=== PATIENT | male | born 1940 | race Caucasian/White ===

== ENCOUNTER 2017-06-29 00:33 | Emergency (ER) | payer OTHER, MEDICAID ==
[~2017-06-29] VITALS: Ht 180.3 cm; Wt 80.0 kg
[2017-06-29 00:46] VITALS: BP 114/68; PULSE 101; RESP 17; TEMP 98.3; O2SAT 96
--- NOTE | 2017-06-29 00:52 | PD ---
HPI Chief Complaint: vomiting Time Seen by Provider: 00:48 Travel History International Travel<30 days: No Contact w/Intl Traveler<30days: No History of Present Illness HPI The patient is a 76 year old male who presents to the [facility] emergency department with a history of falling at 9:30 AM yesterday on June 28. The patient was evaluated at that time and appeared to have only an abrasion to his occipital scalp. The patient was otherwise asymptomatic up until 1 hour prior to arrival in the emergency department when he developed nausea and vomiting. The patient reports having a mild headache. He denies having any neck pain. He denies having any weakness to his extremities. The patient has to be repeatedly awakened to answer questions and follow commands. The patient does have a history of dementia. The patient was brought in by ambulance services. The patient's blood sugar was noted to be in 120 prior to arrival. There reportedly was no loss of consciousness with his head injury. On review of systems otherwise, the patient denies having any known recent fevers, cough, congestion, chest pain, shortness of breath, abdominal pain, diarrhea, urinary symptoms, or other neurologic symptoms. [facility] Past Medical History Narrative Medical The patient's past medical history is significant for dementia, hypertension, diabetes mellitus Past Surgical History Narrative Surgical The patient's past surgical history is unable to be obtained. Social History Alcohol Use: No Tobacco Use: No (the patient's social history is unable to be obtained.) Substance Use: No Allergies-Medications (Allergen,Severity, Reaction): Coded Allergies: No Known Allergies (Unverified , 06/29/17) Reported Meds & Prescriptions Reported Meds & Active Scripts Active Zofran Odt (Ondansetron Odt) 4 Mg Tab 4 Mg SL Q6HR PRN Review of Systems Except as stated in HPI: all other systems reviewed are Neg General / Constitutional: No: Fever Eyes: No: Visual changes HENT: Positive: Headaches, No: Congestion, Neck Stiffness, Neck Pain Cardiovascular: No: Chest Pain or Discomfort Respiratory: No: Cough, Shortness of Breath Gastrointestinal: Positive: Nausea, Vomiting, No: Abdominal Pain Genitourinary: No: Dysuria Musculoskeletal: No: Pain Skin: No Rash Neurologic: Positive: Headache, No: Weakness, Focal Abnormalities, Change in Mentation, Slurred Speech, Sensory Disturbance Psychiatric: No: Depression Endocrine: No: Polydipsia Hematologic/Lymphatic: No: Easy Bruising Physical Exam Narrative General: The patient is a well-developed well-nourished male in no acute distress, drowsy on arrival. Head and Neck exam: Head is normocephalic, evidence of trauma to the posterior/occipital area of the scalp with a linear abrasion noted. No active bleeding. No step-off or crepitus. Eyes: EOMI, pupils are equal round and reactive to light. Nose: Midline septum with pink mucous membranes Mouth: Dentition unremarkable. Moist mucus membranes. Posterior oropharynx is not erythematous. No tonsillar hypertrophy. Uvula midline. Airway patent. Neck: No palpable lymphadenopathy. No nuchal rigidity. No thyromegaly. No spinous process tenderness to palpation. No step-off or crepitus. No erythema or ecchymosis. Cardiovascular: Tachycardia in the low 100s without murmurs, gallops, or rubs. No pulse deficit to the extremities on simultaneous auscultation and palpation of his radial artery. Lungs: Clear to auscultation bilaterally. No wheezes, rhonchi, or rales. Abdomen: Soft, without tenderness to palpation in all 4 quadrants of the abdomen. No guarding, rebound, or rigidity. Normal bowel sounds are audible. No tenderness on palpation of McBurney's point. Extremities: No clubbing, cyanosis, or edema. 2+ pulses in all 4 extremities. No calf tenderness on palpation. No extremity tenderness on palpation or pain with range of motion. Back: No spinous process tenderness to palpation. No costovertebral angle tenderness to palpation. Neurologic Exam: Cranial nerves 2-12 were intact on exam. Strength is 5/5 in all 4 extremities. No sensory deficits noted. The patient is oriented to person, however not place , time, or situation. Skin Exam: No rash noted. Intact skin that is warm and dry. Data Data Last Documented VS Vital Signs Date Time Temp Pulse Resp B/P (MAP) Pulse Ox O2 Delivery O2 Flow Rate FiO2 06/29/17 00:46 98.3 101 17 114/68 (83) 96 Orders Orders Electrocardiogram (06/29/17 00:57) Complete Blood Count With Diff (06/29/17 00:57) Comprehensive Metabolic Panel (06/29/17 00:57) Creatine Kinase (Cpk) (2/5/18 00:57) Ckmb (Isoenzyme) Profile (06/29/17 00:57) Troponin I (06/29/17 00:57) B-Type Natriuretic Peptide (06/29/17 00:57) Prothrombin Time / Inr (Pt) (06/29/17 00:57) Act Partial Throm Time (Ptt) (06/29/17 00:57) Lipase (06/29/17 00:57) Magnesium (Mg) (06/29/17 00:57) Chest, Single Ap (06/29/17 00:57) Ct Brain W/O Iv Contrast(Rout) (06/29/17 00:57) Iv Access Insert/Monitor (06/29/17 00:57) Ecg Monitoring (06/29/17 00:57) Oximetry (06/29/17 00:57) Ct Cerv Spine W/O Contrast (06/29/17 ) Sodium Chlorid 0.9% 500 Ml Inj (Ns 500 M (06/29/17 01:00) Ondansetron Inj (Zofran Inj) (06/29/17 01:00) CKMB (06/29/17 01:10) CKMB% (06/29/17 01:10) Urinalysis - C+S If Indicated (06/29/17 02:09) Cath For Specimen (06/29/17 02:09) Labs Laboratory Tests Test 06/29/17 01:10 06/29/17 03:00 White Blood Count 12.6 TH/MM3 Red Blood Count 3.58 MIL/MM3 Hemoglobin 11.3 GM/DL Hematocrit 32.5 % Mean Corpuscular Volume 90.8 FL Mean Corpuscular Hemoglobin 31.6 PG Mean Corpuscular Hemoglobin Concent 34.8 % Red Cell Distribution Width 15.6 % Platelet Count 232 TH/MM3 Mean Platelet Volume 8.3 FL Neutrophils (%) (Auto) 84.2 % Lymphocytes (%) (Auto) 8.1 % Monocytes (%) (Auto) 7.0 % Eosinophils (%) (Auto) 0.2 % Basophils (%) (Auto) 0.5 % Neutrophils # (Auto) 10.6 TH/MM3 Lymphocytes # (Auto) 1.0 TH/MM3 Monocytes # (Auto) 0.9 TH/MM3 Eosinophils # (Auto) 0.0 TH/MM3 Basophils # (Auto) 0.1 TH/MM3 CBC Comment DIFF FINAL Differential Comment Prothrombin Time 11.7 SEC Prothromb Time International Ratio 1.2 RATIO Activated Partial Thromboplast Time 31.2 SEC Blood Urea Nitrogen 32 MG/DL Creatinine 1.19 MG/DL Random Glucose 133 MG/DL Total Protein 6.9 GM/DL Albumin 3.3 GM/DL Calcium Level 8.1 MG/DL Magnesium Level 2.2 MG/DL Alkaline Phosphatase 96 U/L Aspartate Amino Transf (AST/SGOT) 23 U/L Alanine Aminotransferase (ALT/SGPT) 21 U/L Total Bilirubin 0.4 MG/DL Sodium Level 144 MEQ/L Potassium Level 4.0 MEQ/L Chloride Level 109 MEQ/L Carbon Dioxide Level 29.3 MEQ/L Anion Gap 6 MEQ/L Estimat Glomerular Filtration Rate 59 ML/MIN Total Creatine Kinase 213 U/L Creatine Kinase MB 3.5 NG/ML Troponin I LESS THAN 0.02 NG/ML B-Type Natriuretic Peptide 71 PG/ML Lipase 158 U/L Urine Color YELLOW Urine Turbidity CLEAR Urine pH 6.0 Urine Specific [place] 1.022 Urine Protein TRACE mg/dL Urine Glucose (UA) NEG mg/dL Urine Ketones NEG mg/dL Urine Occult Blood NEG Urine Nitrite NEG Urine Bilirubin NEG Urine Urobilinogen LESS THAN 2.0 MG/DL Urine Leukocyte Esterase TRACE Urine RBC 2 /hpf Urine WBC 2 /hpf Urine Bacteria RARE /hpf Urine Mucus FEW /lpf Microscopic Urinalysis Comment CULT NOT INDICATED MDM Medical Decision Making Medical Screen Exam Complete: Yes Emergency Medical Condition: Yes Medical Record Reviewed: Yes Interpretation(s) Last Impressions Head CT 06/29/1756 Signed Impressions: Service Date/Time: Thursday, June 29, 2017 01:21 - CONCLUSION: 1. No acute intracranial abnormality is identified. 2. Chronic findings include moderate to severe generalized atrophy and mild periventricular white matter change. Benjie Carrillo MD Chest X-Ray 06/29/1756 Signed Impressions: Service Date/Time: Thursday, June 29, 2017 01:09 - CONCLUSION: Underinflated examination with atelectasis at the lung bases. No acute cardiopulmonary abnormality is identified. Benjie Carrillo MD Cervical Spine CT 06/29/17 0000 Signed Impressions: Service Date/Time: Thursday, June 29, 2017 01:23 - CONCLUSION: 1. No acute cervical spine abnormality is identified. 2. Slight anterolisthesis of C4 on C5 and C7 on T1, likely related to facet arthrosis. There is severe degenerative disc disease at C3-C4 and C6-C7. Benjie Carrillo MD Differential Diagnosis Intracranial trauma, versus cervical spine trauma, versus viral syndrome, versus electrolyte derangements Narrative Course During the course of the patients emergency department visit, the patients history, examination, and differential diagnosis were reviewed with the patient. The patient was placed on a marine engineering teacher with oximetry and frequent blood pressure monitoring. The patient had IV access obtained and blood work sent for analysis. The patient had an EKG done on arrival the patient's EKG shows a sinus rhythm with a heart rate of 93, incomplete right bundle branch block, QRS duration is 97 ms, QTC [address] segment elevation is noted. The patient was initially provided normal saline a 500 mL bolus 1, Zofran 4 mg IV. The patients laboratory studies were reviewed and remarkable for a white count of 12.6, hemoglobin 11.3, platelets 232 with 84.2 neutrophils, CMP is remarkable for a chloride of 109, BUN 32, glucose 133, cardiac enzymes within normal limits, BNP is 71, lipase 158, PT 11.7, PTT 31.2 Radiology studies were reviewed and remarkable for a chest x-ray that shows under inflated examination with atelectasis at the lung bases, no acute cardiopulmonary abnormality, CT scan of the brain shows no acute intracranial abnormality. Right findings include moderate to severe generalized atrophy and mild periventricular white matter change, CT scan of the C-spine shows no acute cervical spine abnormality. Degenerative changes are noted. Given the patient's elevated white blood cell count and vomiting, a catheter urine will be sent for analysis to rule out a urinary tract infection. Otherwise, the patient will be [facility] with a prescription for nausea medication. A catheterized urine shows trace leukocyte Estrace, 2 rbc's, 2 wbc's, rare bacteria, culture not indicated. The patient is resting comfortably and feels better, is alert and in no distress. The patients results and examination findings were discussed with the patient. The repeat examination is unremarkable and benign. The history, exam, diagnostic testing, and current condition do not suggest any significant pathology to warrant further testing, continued ED treatment, admission, or surgical evaluation at this point. The vital signs have been stable. The patient does not have uncontrollable pain, intractable vomiting, or other significant symptoms. The patient's condition is stable and appropriate for discharge. The patient will pursue further outpatient evaluation with a primary care physician or other designated or consulting physician as indicated in the discharge instructions. The patient expressed understanding and was agreeable with this plan. Diagnosis Primary Impression: Head injury Qualified Codes: S09.90XA - Unspecified injury of head, initial encounter Additional Impression: Nausea & vomiting Qualified Codes: R11.2 - Nausea with vomiting, unspecified Referrals: Primary Care Physician 2 days Patient Instructions: Acute Nausea and Vomiting (ED), General Instructions, Head Injury (ED) Med/Other Pt SpecificInfo: Prescription(s) given, No Change to Meds Scripts Ondansetron Odt (Zofran Odt) 4 Mg Tab 4 MG SL Q6HR Y for Nausea/Vomiting, #7 TAB 0 Refills Prov: Lashonda Crowe MD 06/29/17 Disposition: 03 DISCHARGE TO SNF Condition: Stable Lashonda Crowe MD Jun 29, 2017 00:52
[2017-06-29] MEDS ORDERED: SODIUM CHLORID 0.9% 500 ML INJ 500 ML IV ONE (01:00)
[2017-06-29] MEDS ORDERED: ONDANSETRON HCL 4 MG/2 ML VIAL IV PUSH ONE (01:00)
[2017-06-29 01:22] LABS: AUTOMATED NEUTROPHIL # 10.6 TH/MM3 (1.8-7.7); BASOPHIL # 0.1 TH/MM3 (0-0.2); BASOPHIL % 0.5 % (0.0-2.0); EOSINOPHIL % 0.2 % (0.0-4.0); HEMATOCRIT 32.5 % (39.0-51.0); HEMOGLOBIN 11.3 GM/DL (13.0-17.0); LYMPH % 8.1 % (9.0-44.0); MEAN CELL VOLUME 90.8 FL (80.0-100.0); MEAN CORPUSCULAR HEMOGLOBIN 31.6 PG (27.0-34.0); MEAN CORPUSCULAR HGB CONC 34.8 % (32.0-36.0); MEAN PLATELET VOLUME 8.3 FL (7.0-11.0); MONOCYTE # 0.9 TH/MM3 (0-0.9); NEUT % 84.2 % (16.0-70.0); PLATELET COUNT 232 TH/MM3 (150-450); RED BLOOD COUNT 3.58 MIL/MM3 (4.50-5.90); RED CELL DISTRIBUTION WIDTH 15.6 % (11.6-17.2); WHITE BLOOD COUNT 12.6 TH/MM3 (4.0-11.0)
--- NOTE | 2017-06-29 01:35 | RADRPT ---
EXAM DATE/TIME: 06/29/2017 01:21 [facility] COMPARISON: No previous studies available for comparison. INDICATIONS : Trauma; fall. RADIATION DOSE: 56.35 CTDIvol (mGy) MEDICAL HISTORY : Non-responsive. SURGICAL HISTORY : Non-responsive. ENCOUNTER: Initial ACUITY: 1 day PAIN SCALE: Non-responsive LOCATION: cranial TECHNIQUE: Multiple contiguous axial images were obtained of the head. Using automated exposure control and adj ustment of the mA and/or kV according to patient size, radiation dose was kept as low as reasonably a chievable to obtain optimal diagnostic quality images. DICOM format image data is available electro nically for review and comparison. FINDINGS: CEREBRUM: There is moderate to severe generalized atrophy. Ventricles are normal in size. No evidence of midli ne shift, mass lesion, hemorrhage or acute infarction. No extra-axial fluid collections are seen. POSTERIOR FOSSA: The cerebellum and brainstem are intact. The 4th ventricle is midline. The cerebellopontine angle i s unremarkable. EXTRACRANIAL: There has been right scleral banding. SKULL: The calvaria is intact. No evidence of skull fracture. CONCLUSION: 1. No acute intracranial abnormality is identified. 2. Chronic findings include moderate to severe generalized atrophy and mild periventricular white mat ter change. Benjie Carrillo MD on June 29, 2017 at 1:32 Board Certified Radiologist. This report was verified electronically.
[2017-06-29 01:36] LABS: INTERNATIONAL NORMALIZED RATIO 1.2 RATIO; PROTHROMBIN TIME - PATIENT 11.7 SEC (9.8-11.6)
--- NOTE | 2017-06-29 01:36 | RADRPT ---
EXAM DATE/TIME: 06/29/2017 01:09 [facility] COMPARISON: No previous studies available for comparison. INDICATIONS : Altered mental status and possible fall. MEDICAL HISTORY : None. SURGICAL HISTORY : Pacemaker. ENCOUNTER: Initial ACUITY: 1 day PAIN SCORE: Non-responsive. LOCATION: Bilateral chest FINDINGS: Portable AP view of the chest demonstrates a normal-sized cardiac silhouette. Left chest wall cardiac pacing device is present. Lungs are underinflated with atelectasis at the bases. No pleural effusion or pneumothorax is identified. Bones and soft tissues demonstrate no acute finding. CONCLUSION: Underinflated examination with atelectasis at the lung bases. No acute cardiopulmonary abnormality is identified. Benjie Carrillo MD on June 29, 2017 at 1:34 Board Certified Radiologist. This report was verified electronically.
[2017-06-29 01:45] LABS: ALBUMIN 3.3 GM/DL (3.4-5.0); ALT (GPT) 21 U/L (12-78); AST (GOT) 23 U/L (15-37); BICARBONATE 29.3 MEQ/L (21.0-32.0); BLOOD UREA NITROGEN 32 MG/DL (7-18); CALCIUM 8.1 MG/DL (8.5-10.1); CHLORIDE 109 MEQ/L (98-107); CREATININE 1.19 MG/DL (0.60-1.30); GLOMERULAR FILTRATION RATE 59 ML/MIN (>89); GLUCOSE,RANDOM 133 MG/DL (74-106); MAGNESIUM 2.2 MG/DL (1.5-2.5); SODIUM (NA) 144 MEQ/L (136-145)
--- NOTE | 2017-06-29 01:46 | RADRPT ---
EXAM DATE/TIME: 06/29/2017 01:23 [facility] COMPARISON: No previous studies available for comparison. INDICATIONS : Trauma; fall. RADIATION DOSE: 25.25 CTDIvol (mGy) MEDICAL HISTORY : Non-responsive. SURGICAL HISTORY : Non-responsive. ENCOUNTER: Initial ACUITY: 1 day PAIN SCALE: Non-responsive LOCATION: neck TECHNIQUE: Volumetric scanning of the cervical spine was performed. Multiplanar reconstructions in the sagittal, coronal and oblique axial planes were performed. Using automated exposure control and adjustment o f the mA and/or kV according to patient size, radiation dose was kept as low as reasonably achievable to obtain optimal diagnostic quality images. DICOM format image data is available electronically f or review and comparison. FINDINGS: There is 2 mm of anterolisthesis of C7 on T1 secondary to facet arthrosis. There is minimal anterolis thesis of C4 on C5 also likely related to facet arthrosis. Severe degenerative disc disease is presen t at C3-C4 and C6-C7. The atlantoaxial relationship is within normal limits. There is no prevertebral soft tissue swelling present. No fracture or dislocation is identified. The visualized portions of the posterior fossa, paraspinous soft tissues, and upper lung zones demons trate no acute abnormality. There are emphysematous changes at the lung apices. CONCLUSION: 1. No acute cervical spine abnormality is identified. 2. Slight anterolisthesis of C4 on C5 and C7 on T1, likely related to facet arthrosis. There is sever e degenerative disc disease at C3-C4 and C6-C7. Benjie Carrillo MD on June 29, 2017 at 1:42 Board Certified Radiologist. This report was verified electronically.
[2017-06-29 01:49] LABS: ALKALINE PHOSPHATASE 96 U/L (45-117); TOTAL BILIRUBIN ADULT 0.4 MG/DL (0.2-1.0); TOTAL PROTEIN 6.9 GM/DL (6.4-8.2); TROPONIN I LESS THAN 0.02 NG/ML (0.02-0.05)
[2017-06-29 03:19] LABS: BACTERIA, URINE RARE /hpf; BILIRUBIN, URINE NEG (NEG); BLOOD, URINE NEG (NEG); GLUCOSE,URINE NEG (NEG); KETONE, URINE NEG (NEG); MUCUS URINE FEW /lpf (OCC); NITRITE,URINE NEG (NEG); URINE COLOR YELLOW (YELLW/STRAW); URINE LEUKOCYTE ESTERASE TRACE (NEG)
[2017-06-29] MEDS ORDERED: ZOFR4TAB3 SL (03:21)
[2017-06-29 07:59] VITALS: BP 112/64; PULSE 87; RESP 17; O2SAT 98
--- NOTE | 2017-06-29 22:05 | EKG ---
Date Performed: 06/29/2017 Time Performed: 01:42:43 PTAGE: 76 years EKG: Sinus rhythm INCOMPLETE RIGHT BUNDLE BRANCH BLOCK BORDERLINE ECG PREVIOUS TRACING : 06/12/1995 13.44 DOCTOR: Luis Angel Craig Interpretating Date/Time 06/29/2017 22:00:20
== END 2017-06-29 10:59 ==
LOC: NEPC 00:33
DX: S09.90XA Unspecified injury of head, initial encounter (principal); R11.2 Nausea with vomiting, unspecified; F03.90 Unspecified dementia, unspecified severity, without behavioral disturbance, psychotic disturbance, mood disturbance, and anxiety; I45.10 Unspecified right bundle-branch block; W19.XXXA Unspecified fall, initial encounter
CPT/HCPCS: 70450; 71045; 72125; 80053; 81001; 82550; 82552; 83690; 83735; 83880; 84484; 85025; 85610; 85730; 93005; 96361; 96374; 99285; J2405; J7040

== ENCOUNTER 2017-07-16 17:37 | Emergency (ER) | payer OTHER, MEDICAID ==
[~2017-07-16] VITALS: Ht 170.2 cm; Wt 70.0 kg
[~2017-07-16 17:37] MED LIST: ZOFR4TAB3 SL
[2017-07-16 18:07] VITALS: BP 112/60; PULSE 95; RESP 16; TEMP 98.1; O2SAT 98
[2017-07-16] MEDS ORDERED: SIMV40TA PO (18:13)
[2017-07-16] MEDS ORDERED: CLON0.5T PO (18:13)
[2017-07-16] MEDS ORDERED: METO25TA3 PO (18:13)
[2017-07-16] MEDS ORDERED: REME15TA PO (18:13)
[2017-07-16] MEDS ORDERED: METF500T4 PO (18:13)
[2017-07-16] MEDS ORDERED: RAMI5CAP PO (18:13)
[2017-07-16] MEDS ORDERED: SODIUM CHLORIDE 0.9% FLUSH 10 ML FLUSH IV FLUSH PRN (18:30)
[2017-07-16] MEDS ORDERED: SODIUM CHLOR 0.9% 1000 ML INJ 1,000 ML IV ONE (18:30)
--- NOTE | 2017-07-16 18:30 | PD ---
HPI Chief Complaint: Altered Mental Status Time Seen by Provider: 18:17 Travel History International Travel<30 days: No Contact w/Intl Traveler<30days: No Traveled to known affect area: No History of Present Illness HPI This person is sent from the group home according to paramedics because he was more confused and altered than baseline. He has history of advanced dementia and is in the memory care unit of [facility]. No reported recent head injury although he had one a couple weeks ago with negative brain CT afterwards. He has had no fever. He is diabetic but Accu- Chek normal. He was found lying in the recliner just not doing much today. He is not able to provide any useful history or review of systems. PFSH Past Medical History Dementia: Yes Diabetes: Yes Diminished Hearing: Yes Glaucoma: Yes Hypertension: Yes Psychiatric: Yes Renal Failure: Yes Social History Alcohol Use: No Tobacco Use: No (the patient's social history is unable to be obtained.) Substance Use: No Allergies-Medications (Allergen,Severity, Reaction): Coded Allergies: No Known Allergies (Unverified , 07/16/17) Reported Meds & Prescriptions Reported Meds & Active Scripts Active Reported Zofran (Ondansetron HCl) 4 Mg Tab 4 Mg PO Q6HR PRN Tylenol (Acetaminophen) 325 Mg Tab 325 Mg PO Q6H PRN Famotidine 20 Mg Tab 20 Mg PO DAILY PRN Timoptic Opth Drops (Timolol Opth Drops) 0.5 % Soln 1 Drop LEFT EYE BID Stop date:07/23/2017 Timoptic Opth Drops (Timolol Opth Drops) 0.25 % Soln 1 Drop LEFT EYE BID On hold from 06/25/2017-07/23/2017 Seroquel (Quetiapine Fumarate) 50 Mg Tab 50 Mg PO BID Namenda (Memantine) 10 Mg Tab 10 Mg PO BID Clonazepam 0.5 Mg Tab 0.5 Mg PO BID Simvastatin 40 Mg Tab 40 Mg PO HS Remeron (Mirtazapine) 15 Mg Tab 15 Mg PO HS Ramipril 5 Mg Cap 5 Mg PO DAILY Metoprolol Tartrate 25 Mg Tab 25 Mg PO DAILY Metformin ER (Metformin HCl) 500 Mg Sukh 500 Mg PO DAILY With evening meal Review of Systems ROS Limitations: Clinical Condition, Altered Mental Status, Poor Historian Physical Exam Narrative GENERAL: Elderly confused demented well-developed patient in no apparent distress. SKIN: Focused skin assessment reveals no rash and nodules. Skin is Warm and dry. HEAD: Atraumatic. Normocephalic. EYES: Pupils equal and round. No scleral icterus. No injection or drainage. ENT: No nasal bleeding or discharge. Mucous membranes pink and moist. NECK: Trachea midline. No JVD. CARDIOVASCULAR: Regular rate and rhythm. No murmur appreciated. RESPIRATORY: No accessory muscle use. Clear to auscultation. Breath sounds equal bilaterally. GASTROINTESTINAL: Abdomen soft, non-tender, nondistended. Hepatic and splenic margins not palpable. MUSCULOSKELETAL: No obvious deformities. No clubbing. No cyanosis. No edema. Extremities are very stiff NEUROLOGICAL: Normal gag reflex. impossible to gauge motor strength and sensation given his lack of participation. He mumbles a bit but no intelligible responses to questions . PSYCHIATRIC: Very flat and minimally reactive mood and affect; insight and judgment poor Data Data Last Documented VS Vital Signs Date Time Temp Pulse Resp B/P (MAP) Pulse Ox O2 Delivery O2 Flow Rate FiO2 07/16/17 18:07 98.1 95 16 112/60 (77) 98 Orders Orders Basic Metabolic Panel (Bmp) (07/16/17 18:18) Complete Blood Count With Diff (07/16/17 18:18) Thyroid Stimulating Hormone (07/16/17 18:18) Urinalysis - C+S If Indicated (07/16/17 18:18) Chest, Single Ap (07/16/17 18:18) Ct Brain W/O Iv Contrast(Rout) (07/16/17 18:18) Ecg Monitoring (07/16/17 18:18) Iv Access Insert/Monitor (07/16/17 18:18) Cath For Specimen (07/16/17 18:18) Oximetry (07/16/17 18:18) Sodium Chloride 0.9% Flush (Ns Flush) (07/16/17 18:30) Sodium Chlor 0.9% 1000 Ml Inj (Ns 1000 M (07/16/17 18:30) Arterial Blood Gas (Abg) (07/16/17 ) MDM Medical Decision Making Medical Screen Exam Complete: Yes Emergency Medical Condition: Yes Medical Record Reviewed: Yes Differential Diagnosis Electrolyte abnormality, UTI, dehydration, intracranial lesion Narrative Course I have reviewed the patient's electronic medical record. Reviewed his visit from 2 weeks ago This is a very demented man who is here for worsening mental status for 1 day I have ordered an altered mental status workup to include labs and urine and CT of brain It is now 15 minutes until shift end and none of the workup is back yet. It will be some time to collect it all. Case will be checked out to the 7 PM physician to assist with disposition. Diagnosis Primary Impression: Altered mental status Qualified Codes: R41.82 - Altered mental status, unspecified Additional Impression: Dementia Qualified Codes: F03.90 - Unspecified dementia without behavioral disturbance Brent Castellanos MD Jul 16, 2017 18:30
[2017-07-16] MEDS ORDERED: SERO50TA PO (18:42)
[2017-07-16] MEDS ORDERED: FAMO20TA2 PO (18:42)
[2017-07-16] MEDS ORDERED: NAME10TA PO (18:42)
[2017-07-16] MEDS ORDERED: TIMO0.5S5 LEFT EYE (18:42)
[2017-07-16] MEDS ORDERED: TIMO0.255 LEFT EYE (18:42)
[2017-07-16] MEDS ORDERED: ZOFR4TAB PO (18:42)
[2017-07-16] MEDS ORDERED: TYLE325T PO (18:42)
--- NOTE | 2017-07-16 18:48 | RADRPT ---
EXAM DATE/TIME: 07/16/2017 18:29 [facility] COMPARISON: CHEST SINGLE AP, June 29, 2017, 1:09. INDICATIONS : Shortness of breath. MEDICAL HISTORY : Unobtainable. SURGICAL HISTORY : Pacemaker. ENCOUNTER: Initial ACUITY: 1 day PAIN SCORE: Non-responsive. LOCATION: Bilateral chest FINDINGS: Stable dual-lead pacemaker. Redemonstration of bibasilar airspace disease. Cardiomediastinal contours are stable. Bony thorax is grossly intact. CONCLUSION: 1. Persistent mild bibasilar airspace disease, presumably atelectasis. 2. No acute abnormality or interval change. Golden Kingston MD on July 16, 2017 at 18:45 Board Certified Radiologist. This report was verified electronically.
[2017-07-16 19:02] LABS: AUTOMATED NEUTROPHIL # 8.4 TH/MM3 (1.8-7.7); BASOPHIL % 0.4 % (0.0-2.0); EOSINOPHIL # 0.1 TH/MM3 (0-0.4); EOSINOPHIL % 1.3 % (0.0-4.0); HEMATOCRIT 34.8 % (39.0-51.0); HEMOGLOBIN 11.5 GM/DL (13.0-17.0); LYMPH % 14.7 % (9.0-44.0); LYMPHOCYTE # 1.7 TH/MM3 (1.0-4.8); MEAN CELL VOLUME 92.4 FL (80.0-100.0); MEAN CORPUSCULAR HEMOGLOBIN 30.6 PG (27.0-34.0); MEAN CORPUSCULAR HGB CONC 33.1 % (32.0-36.0); MEAN PLATELET VOLUME 8.4 FL (7.0-11.0); MONO % 9.6 % (0.0-8.0); MONOCYTE # 1.1 TH/MM3 (0-0.9); PLATELET COUNT 306 TH/MM3 (150-450); RED BLOOD COUNT 3.77 MIL/MM3 (4.50-5.90); RED CELL DISTRIBUTION WIDTH 15.7 % (11.6-17.2); WHITE BLOOD COUNT 11.4 TH/MM3 (4.0-11.0)
[2017-07-16 19:04] LABS: AMORPHOUS SEDIMENT, URINE RARE; BACTERIA, URINE FEW /hpf; BILIRUBIN, URINE NEG (NEG); BLOOD, URINE NEG (NEG); GLUCOSE,URINE NEG (NEG); KETONE, URINE NEG (NEG); MUCUS URINE FEW /lpf (OCC); NITRITE,URINE POS (NEG); URINE COLOR YELLOW (YELLW/STRAW); URINE LEUKOCYTE ESTERASE LARGE (NEG)
[2017-07-16] MEDS ORDERED: LEVOFLOXACIN 750 MG PREMIX INJ 150 ML IV ONE (19:15)
--- NOTE | 2017-07-16 19:18 | PD ---
Physical Exam Date Seen by Provider: Jul 16, 2017 Time Seen by Provider: 19:30 Narrative pt has nitrate Postive Urine +wbc UTi levaquin IV and re-eval Data Data Last Documented VS Vital Signs Date Time Temp Pulse Resp B/P (MAP) Pulse Ox O2 Delivery O2 Flow Rate FiO2 07/17/17 09:17 07/17/17 08:14 88 12 98 Room Air 07/16/17 18:07 98.1 Orders Orders Basic Metabolic Panel (Bmp) (07/16/17 18:18) Complete Blood Count With Diff (07/16/17 18:18) Thyroid Stimulating Hormone (07/16/17 18:18) Urinalysis - C+S If Indicated (07/16/17 18:18) Chest, Single Ap (07/16/17 18:18) Ct Brain W/O Iv Contrast(Rout) (07/16/17 18:18) Ecg Monitoring (07/16/17 18:18) Iv Access Insert/Monitor (07/16/17 18:18) Cath For Specimen (07/16/17 18:18) Oximetry (07/16/17 18:18) Sodium Chloride 0.9% Flush (Ns Flush) (07/16/17 18:30) Sodium Chlor 0.9% 1000 Ml Inj (Ns 1000 M (07/16/17 18:30) Arterial Blood Gas (Abg) (07/16/17 18:54) Urine Culture (07/16/17 18:20) Levofloxacin 750 Mg Premix Inj (Levaquin (07/16/17 19:15) Ed Discharge Order (07/17/17 06:29) Labs Laboratory Tests Test 07/16/17 18:20 07/16/17 18:54 White Blood Count 11.4 TH/MM3 Red Blood Count 3.77 MIL/MM3 Hemoglobin 11.5 GM/DL Hematocrit 34.8 % Mean Corpuscular Volume 92.4 FL Mean Corpuscular Hemoglobin 30.6 PG Mean Corpuscular Hemoglobin Concent 33.1 % Red Cell Distribution Width 15.7 % Platelet Count 306 TH/MM3 Mean Platelet Volume 8.4 FL Neutrophils (%) (Auto) 74.0 % Lymphocytes (%) (Auto) 14.7 % Monocytes (%) (Auto) 9.6 % Eosinophils (%) (Auto) 1.3 % Basophils (%) (Auto) 0.4 % Neutrophils # (Auto) 8.4 TH/MM3 Lymphocytes # (Auto) 1.7 TH/MM3 Monocytes # (Auto) 1.1 TH/MM3 Eosinophils # (Auto) 0.1 TH/MM3 Basophils # (Auto) 0.0 TH/MM3 CBC Comment DIFF FINAL Differential Comment Urine Color YELLOW Urine Turbidity CLEAR Urine pH 6.0 Urine Specific [place] 1.019 Urine Protein TRACE mg/dL Urine Glucose (UA) NEG mg/dL Urine Ketones NEG mg/dL Urine Occult Blood NEG Urine Nitrite POS Urine Bilirubin NEG Urine Urobilinogen LESS THAN 2.0 MG/DL Urine Leukocyte Esterase LARGE Urine RBC 6 /hpf Urine WBC 35 /hpf Urine Amorphous Sediment RARE Urine Bacteria FEW /hpf Urine Mucus FEW /lpf Microscopic Urinalysis Comment CATH-CULTURE IND Blood Urea Nitrogen 27 MG/DL Creatinine 1.05 MG/DL Random Glucose 94 MG/DL Calcium Level 8.9 MG/DL Sodium Level 139 MEQ/L Potassium Level 4.8 MEQ/L Chloride Level 106 MEQ/L Carbon Dioxide Level 30.4 MEQ/L Anion Gap 3 MEQ/L Estimat Glomerular Filtration Rate 68 ML/MIN Thyroid Stimulating Hormone 3rd Gen 3.970 uIU/ML Blood Gas Puncture Site RT RADIAL Blood Gas Patient Temperature 98.6 Blood Gas HCO3 25 mmol/L Blood Gas Base Excess 0.9 mmol/L Blood Gas Oxygen Saturation 93 % Arterial Blood pH 7.43 Arterial Blood Partial Pressure CO2 38 mmHg Arterial Blood Partial Pressure O2 68 mmHG Arterial Blood Oxygen Content 13.8 Vol % Arterial Blood Carboxyhemoglobin 1.6 % Arterial Blood Methemoglobin 0.4 % Blood Gas Hemoglobin 10.5 G/DL Oxygen Delivery Device ROOM AIR Blood Gas Inspired Oxygen 21 % [facility] Medical Record Reviewed: Yes Supervised Visit with CARLYLE: No Differential Diagnosis urosepsis dementia advanced dilirium from uti or PNA Diagnosis Primary Impression: UTI (urinary tract infection) Qualified Codes: N30.00 - Acute cystitis without hematuria Additional Impressions: Dementia Qualified Codes: F03.90 - Unspecified dementia without behavioral disturbance Altered mental status Qualified Codes: R41.82 - Altered mental status, unspecified Patient Instructions: General Instructions, Urinary Tract Infection in Men (ED) Scripts Levofloxacin (Levaquin) 500 Mg Tablet 500 MG PO DAILY for Infection, #7 TAB 0 Refills Prov: Anshu Cordova MD 07/17/17 Disposition: 01 DISCHARGE HOME Condition: Good Anshu Cordova MD Jul 16, 2017 19:18
[2017-07-16 19:26] LABS: BICARBONATE 30.4 MEQ/L (21.0-32.0); CALCIUM 8.9 MG/DL (8.5-10.1); CREATININE 1.05 MG/DL (0.60-1.30)
--- NOTE | 2017-07-16 20:15 | RADRPT ---
EXAM DATE/TIME: 07/16/2017 19:34 [facility] COMPARISON: CT BRAIN W/O CONTRAST, June 29, 2017, 1:21. INDICATIONS : Altered mental status. RADIATION DOSE: 61.96 CTDIvol (mGy) MEDICAL HISTORY : Dementia. Hypertension. Renal failure. Diabetes. SURGICAL HISTORY : None. ENCOUNTER: Initial ACUITY: 1 day PAIN SCALE: 0/10 LOCATION: cranial TECHNIQUE: Multiple contiguous axial images were obtained of the head. Using automated exposure control and adj ustment of the mA and/or kV according to patient size, radiation dose was kept as low as reasonably a chievable to obtain optimal diagnostic quality images. DICOM format image data is available electro nically for review and comparison. FINDINGS: CEREBRUM: Severe diffuse cerebral atrophy unchanged from prior exam. Stable mild periventricular white matter h ypodensities. The ventricles are normal for age. No evidence of midline shift, mass lesion, hemorrha ge or acute infarction. No extra-axial fluid collections are seen. POSTERIOR FOSSA: The cerebellum and brainstem are intact. The 4th ventricle is midline. The cerebellopontine angle i s unremarkable. EXTRACRANIAL: The visualized portion of the orbits is intact. SKULL: The calvaria is intact. No evidence of skull fracture. CONCLUSION: 1. Stable examination without acute intracranial abnormality. Golden Kingston MD on July 16, 2017 at 20:12 Board Certified Radiologist. This report was verified electronically.
[2017-07-17] MEDS ORDERED: LEVA500T33 PO (06:28)
[2017-07-17 06:42] VITALS: BP 118/71; PULSE 72; RESP 16; O2SAT 98
[2017-07-17 08:14] VITALS: BP 124/64; PULSE 88; RESP 12; O2SAT 98
== END 2017-07-17 09:19 ==
LOC: NEPC 17:37
DX: N30.00 Acute cystitis without hematuria (principal); F03.90 Unspecified dementia, unspecified severity, without behavioral disturbance, psychotic disturbance, mood disturbance, and anxiety; I12.9 Hypertensive chronic kidney disease with stage 1 through stage 4 chronic kidney disease, or unspecified chronic kidney disease; E11.22 Type 2 diabetes mellitus with diabetic chronic kidney disease; N18.9 Chronic kidney disease, unspecified; Z79.84 Long term (current) use of oral hypoglycemic drugs
CPT/HCPCS: 36600; 70450; 71045; 80048; 81001; 82805; 84443; 85025; 86403; 87077; 87086; 87186; 96361; 96374; 99285; J1956; J7030; P9612

== ENCOUNTER 2017-07-25 18:55 | Inpatient (IN) | payer MEDICARE, MEDICAID ==
[~2017-07-25] VITALS: Ht 180.3 cm; Wt 63.8 kg
[~2017-07-25 18:55] MED LIST changes: +CLON0.5T PO; +FAMO20TA2 PO; +LEVA500T33 PO; +METF500T4 PO; +METO25TA3 PO; +NAME10TA PO; +RAMI5CAP PO; +REME15TA PO; +SERO50TA PO; +SIMV40TA PO; +TIMO0.255 LEFT EYE; +TIMO0.5S5 LEFT EYE; +TYLE325T PO; +ZOFR4TAB PO; -ZOFR4TAB3 SL
[2017-07-25 19:49] VITALS: BP 111/65; PULSE 78; RESP 16; TEMP 98.2; O2SAT 98
--- NOTE | 2017-07-25 20:56 | PD ---
HPI Chief Complaint: Fall Time Seen by Provider: 20:48 Travel History International Travel<30 days: No Contact w/Intl Traveler<30days: No Traveled to known affect area: No History of Present Illness HPI 76-year-old male with history of dementia, diabetes, sent in from his long term for evaluation of posterior head wound after a fall. Reportedly the patient had a fall from standing and there was no loss of consciousness. The patient is awake and alert, however does not know why he is in the emergency department. He denies any physical complaints. He denies head neck or back pain. No chest pain or dyspnea. No abdominal pain. No upper or lower extremity pain. Chart review shows that the patient is not on any antiplatelets or anticoagulants. Patient was recently seen in the emergency department at the end of June and was diagnosed with a UTI. Chart review shows that this UTI grew out staph epidermidis. The patient was started on Levaquin at that time, however the bacteria is resistant to this medication. PFSH Past Medical History Dementia: Yes Diabetes: Yes Patient Takes Glucophage: Yes Diminished Hearing: Yes Glaucoma: Yes Hypertension: Yes Psychiatric: Yes Renal Failure: Yes Past Surgical History Surgical History: Unable to Obtain Social History Alcohol Use: No Tobacco Use: No (the patient's social history is unable to be obtained.) Substance Use: No Allergies-Medications (Allergen,Severity, Reaction): Coded Allergies: No Known Allergies (Unverified , 07/25/17) Reported Meds & Prescriptions Reported Meds & Active Scripts Active Reported Tylenol (Acetaminophen) 325 Mg Tab 325 Mg PO Q6H PRN Famotidine 20 Mg Tab 20 Mg PO DAILY PRN Timoptic Opth Drops (Timolol Opth Drops) 0.5 % Soln 1 Drop LEFT EYE BID Stop date:07/23/2017 Timoptic Opth Drops (Timolol Opth Drops) 0.25 % Soln 1 Drop LEFT EYE BID On hold from 06/25/2017-07/23/2017 Seroquel (Quetiapine Fumarate) 50 Mg Tab 50 Mg PO BID Namenda (Memantine) 10 Mg Tab 10 Mg PO BID Clonazepam 0.5 Mg Tab 0.5 Mg PO BID Simvastatin 40 Mg Tab 40 Mg PO HS Remeron (Mirtazapine) 15 Mg Tab 15 Mg PO HS Ramipril 5 Mg Cap 5 Mg PO DAILY Metoprolol Tartrate 25 Mg Tab 25 Mg PO DAILY Metformin ER (Metformin HCl) 500 Mg Sukh 500 Mg PO DAILY With evening meal Review of Systems Except as stated in HPI: all other systems reviewed are Neg Physical Exam Narrative GENERAL: Well-developed, well-nourished, awake, alert, comfortable, no apparent distress. SKIN: Focused skin assessment warm/dry. Posterior/superior scalp abrasion with underlying hematoma, no laceration HEAD: Posterior scalp wound with small underlying hematoma. Normocephalic. EYES: Pupils equal, round, 3 mm, reactive to light. EOMI. No scleral icterus. No injection or drainage. ENT: No nasal bleeding or discharge. Mucous membranes pink and moist. NECK: Trachea midline. No JVD. No midline cervical spine step-off or tenderness. CARDIOVASCULAR: Regular rate and rhythm. RESPIRATORY: No accessory muscle use. Clear to auscultation. Breath sounds equal bilaterally. GASTROINTESTINAL: Abdomen soft, non-tender, nondistended. MUSCULOSKELETAL: No obvious deformities. No clubbing. No cyanosis. No edema. Normal range of motion in all joints and extremities without obvious deformity. Pelvis is stable. NEUROLOGICAL: Awake and alert. No obvious cranial nerve deficits. Motor grossly within normal limits. Normal speech. PSYCHIATRIC: Appropriate mood and affect; insight and judgment normal. Data Data Last Documented VS Vital Signs Date Time Temp Pulse Resp B/P (MAP) Pulse Ox O2 Delivery O2 Flow Rate FiO2 07/25/17 22:25 98 Room Air 07/25/17 19:49 98.2 78 16 111/65 (80) Orders Orders Ct Brain W/O Iv Contrast(Rout) (07/25/17 ) Ct Cerv Spine W/O Contrast (07/25/17 ) Nitrofurantoin Monohyd Macrocr (Macrobid (07/25/17 21:00) Tetanus/Diphtheria Tox Adult (Tetanus/Di (07/25/17 21:15) Complete Blood Count With Diff (07/25/17 21:58) Comprehensive Metabolic Panel (07/25/17 21:58) Prothrombin Time / Inr (Pt) (07/25/17 21:58) Act Partial Throm Time (Ptt) (07/25/17 21:58) Urinalysis - C+S If Indicated (07/25/17 21:58) Iv Access Insert/Monitor (07/25/17 21:58) Ecg Monitoring (07/25/17 21:58) Oximetry (07/25/17 21:58) Sodium Chloride 0.9% Flush (Ns Flush) (07/25/17 22:00) Electrocardiogram (07/25/17 21:58) ^ [place] Collar (07/25/17 22:02) Labs Laboratory Tests Test 07/25/17 22:05 White Blood Count 10.9 TH/MM3 Red Blood Count 3.65 MIL/MM3 Hemoglobin 11.2 GM/DL Hematocrit 33.5 % Mean Corpuscular Volume 91.8 FL Mean Corpuscular Hemoglobin 30.6 PG Mean Corpuscular Hemoglobin Concent 33.3 % Red Cell Distribution Width 15.2 % Platelet Count 284 TH/MM3 Mean Platelet Volume 7.7 FL Neutrophils (%) (Auto) 75.7 % Lymphocytes (%) (Auto) 14.4 % Monocytes (%) (Auto) 7.2 % Eosinophils (%) (Auto) 2.4 % Basophils (%) (Auto) 0.3 % Neutrophils # (Auto) 8.3 TH/MM3 Lymphocytes # (Auto) 1.6 TH/MM3 Monocytes # (Auto) 0.8 TH/MM3 Eosinophils # (Auto) 0.3 TH/MM3 Basophils # (Auto) 0.0 TH/MM3 CBC Comment DIFF FINAL Differential Comment Urine Color YELLOW Urine Turbidity CLEAR Urine pH 6.5 Urine Specific [place] 1.014 Urine Protein NEG mg/dL Urine Glucose (UA) NEG mg/dL Urine Ketones NEG mg/dL Urine Occult Blood NEG Urine Nitrite NEG Urine Bilirubin NEG Urine Urobilinogen LESS THAN 2.0 MG/DL Urine Leukocyte Esterase MOD Urine RBC 1 /hpf Urine WBC 3 /hpf Urine Squamous Epithelial Cells <1 /hpf Urine Mucus FEW /lpf Microscopic Urinalysis Comment CULT NOT INDICATED Blood Urea Nitrogen 29 MG/DL Creatinine 1.13 MG/DL Random Glucose 116 MG/DL Total Protein 6.4 GM/DL Albumin 3.0 GM/DL Calcium Level 8.3 MG/DL Alkaline Phosphatase 101 U/L Aspartate Amino Transf (AST/SGOT) 17 U/L Alanine Aminotransferase (ALT/SGPT) 14 U/L Total Bilirubin 0.2 MG/DL Sodium Level 141 MEQ/L Potassium Level 4.0 MEQ/L Chloride Level 106 MEQ/L Carbon Dioxide Level 30.1 MEQ/L Anion Gap 5 MEQ/L Estimat Glomerular Filtration Rate 63 ML/MIN MDM Medical Decision Making Medical Screen Exam Complete: Yes Emergency Medical Condition: Yes Medical Record Reviewed: Yes Differential Diagnosis Fall, intra-cranial trauma, cervical spine injury, scalp laceration Narrative Course 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 CT cervical spine shows T1 fracture with anterior wedging with mild loss of vertebral body height. [place] cervical collar was placed and I discussed the case with Dr. Carter. Patient will be admitted to the medical service and he will see the patient in consultation. Labs reviewed. Patient is clearly not safe for discharge home given his history of frequent falls with this fall resulting in a T1 fracture. He will be admitted for further treatment and evaluation. Case discussed with hospitalist Dr. Loaiza who will admit the patient to her service. Diagnosis Primary Impression: Fall Qualified Codes: W19.XXXA - Unspecified fall, initial encounter Additional Impressions: Head injury Qualified Codes: S09.90XA - Unspecified injury of head, initial encounter T1 vertebral fracture Qualified Codes: S22.010A - Wedge compression fracture of first thoracic vertebra, initial encounter for closed fracture Admitting Information Admitting Physician Requests: Admit Prakash Rice MD Jul 25, 2017 20:56
[2017-07-25] MEDS ORDERED: NITROFURANTOIN MONOHYD MACROCR 100 MG CAP PO ONE (21:00)
[2017-07-25] MEDS ORDERED: TETANUS/DIPHTHERIA TOXOID ADULT 0.5 ML VIAL IM ONE (21:15)
--- NOTE | 2017-07-25 21:44 | RADRPT ---
EXAM DATE/TIME: 07/25/2017 21:23 [facility] COMPARISON: CT BRAIN W/O CONTRAST, June 29, 2017, 1:21. CT BRAIN W/O CONTRAST, 2017, 19:34. INDICATIONS : Trauma. Fall. RADIATION DOSE: 69.15 CTDIvol (mGy) MEDICAL HISTORY : Hypertension. Diabetes mellitus type 2. Renal failure, chronic. SURGICAL HISTORY : None. ENCOUNTER: Initial ACUITY: 1 day PAIN SCALE: 2/10 LOCATION: cranial TECHNIQUE: Multiple contiguous axial images were obtained of the head. Using automated exposure control and adjustment of the mA and/or kV according to patient size, radiation dose was kept as low as reasonably achievable to obtain optimal diagnostic quality images. DICOM format image data is av ailable electronically for review and comparison. FINDINGS: There no fractures. 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 Maximal trans verse width on the right a 2 cm, on the left of 1.4 cm. No midline shift. There is no hydrocephalus. No signs of acute infarct, mass, or acute intracranial hemorrhage. There is mild mass effect on the c erebral hemispheres. 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 Agustin Ennis MD on July 25, 2017 at 21:40 Board Certified Radiologist. This report was verified electronically.
--- NOTE | 2017-07-25 21:49 | RADRPT ---
EXAM DATE/TIME: 07/25/2017 21:23 [facility] COMPARISON: CT CERVICAL SPINE W/O CONTRAST, June 29, 2017, 1:23. INDICATIONS : Trauma. Fall. RADIATION DOSE: 31.43 CTDIvol (mGy) MEDICAL HISTORY : Hypertension. Diabetes mellitus type 2. Renal failure, chronic. SURGICAL HISTORY : None. ENCOUNTER: Initial ACUITY: 1 day PAIN SCALE: 2/10 LOCATION: neck TECHNIQUE: Volumetric scanning of the cervical spine was performed. Multiplanar reconstructions in the sagittal, coronal and oblique axial planes were performed. Using automated exposure control and adjustment o f the mA and/or kV according to patient size, radiation dose was kept as low as reasonably achievable to obtain optimal diagnostic quality images. DICOM format image data is available electronically f or review and comparison. FINDINGS: There is a slight wedge compression fracture of T1 with lucency seen along the superior endplate ante rior one half. There is multilevel osteophyte formation. No prevertebral soft tissue swelling. Severe disc space narrowing at C3-4 and C6-7 noted. Moderate multilevel facet hypertrophic changes. The odo ntoid process is intact. Moderate emphysematous changes are seen at the lung apices. There is mild ca nal narrowing at C2-3, moderate narrowing at C3-4, C4-5. CONCLUSION: T1 superior endplate fracture identified, acute. Mild loss of vertebral body height. Agustin nEnis MD on July 25, 2017 at 21:45 Board Certified Radiologist. This report was verified electronically.
[2017-07-25] MEDS ORDERED: SODIUM CHLORIDE 0.9% FLUSH 10 ML FLUSH IV FLUSH PRN ×2 (22:00→23:30)
[2017-07-25 22:20] LABS: AUTOMATED NEUTROPHIL # 8.3 TH/MM3 (1.8-7.7); BASOPHIL % 0.3 % (0.0-2.0); EOSINOPHIL # 0.3 TH/MM3 (0-0.4); EOSINOPHIL % 2.4 % (0.0-4.0); HEMATOCRIT 33.5 % (39.0-51.0); HEMOGLOBIN 11.2 GM/DL (13.0-17.0); LYMPH % 14.4 % (9.0-44.0); LYMPHOCYTE # 1.6 TH/MM3 (1.0-4.8); MEAN CELL VOLUME 91.8 FL (80.0-100.0); MEAN CORPUSCULAR HEMOGLOBIN 30.6 PG (27.0-34.0); MEAN CORPUSCULAR HGB CONC 33.3 % (32.0-36.0); MEAN PLATELET VOLUME 7.7 FL (7.0-11.0); MONO % 7.2 % (0.0-8.0); MONOCYTE # 0.8 TH/MM3 (0-0.9); NEUT % 75.7 % (16.0-70.0); PLATELET COUNT 284 TH/MM3 (150-450); RED BLOOD COUNT 3.65 MIL/MM3 (4.50-5.90); RED CELL DISTRIBUTION WIDTH 15.2 % (11.6-17.2); WHITE BLOOD COUNT 10.9 TH/MM3 (4.0-11.0)
[2017-07-25 22:25] VITALS: O2SAT 98
[2017-07-25 22:28] LABS: BILIRUBIN, URINE NEG (NEG); BLOOD, URINE NEG (NEG); GLUCOSE,URINE NEG (NEG); KETONE, URINE NEG (NEG); MUCUS URINE FEW /lpf (OCC); NITRITE,URINE NEG (NEG); PH, URINE 6.5 (5.0-8.5); SQUAMOUS EPITHELIAL CELL URINE <1 /hpf (0-5); URINE COLOR YELLOW (YELLW/STRAW); URINE LEUKOCYTE ESTERASE MOD (NEG)
[2017-07-25 22:39] LABS: ALT (GPT) 14 U/L (12-78); AST (GOT) 17 U/L (15-37); BICARBONATE 30.1 MEQ/L (21.0-32.0); BLOOD UREA NITROGEN 29 MG/DL (7-18); CALCIUM 8.3 MG/DL (8.5-10.1); CHLORIDE 106 MEQ/L (98-107); CREATININE 1.13 MG/DL (0.60-1.30); GLOMERULAR FILTRATION RATE 63 ML/MIN (>89); GLUCOSE,RANDOM 116 MG/DL (74-106); SODIUM (NA) 141 MEQ/L (136-145)
[2017-07-25 22:41] LABS: ALKALINE PHOSPHATASE 101 U/L (45-117); TOTAL BILIRUBIN ADULT 0.2 MG/DL (0.2-1.0); TOTAL PROTEIN 6.4 GM/DL (6.4-8.2)
--- NOTE | 2017-07-25 23:28 | HHI.HP ---
HPI Service [facility] Primary Care Physician Dhiraj Larson MD Admission Diagnosis Fall, head injury, T1 fracture Diagnoses: (1) Fall Diagnosis: Principal (2) T1 vertebral fracture Diagnosis: Principal (3) Dementia Diagnosis: Principal (4) UTI (urinary tract infection) Diagnosis: Principal (5) DM (diabetes mellitus) Diagnosis: Principal Travel History International Travel<30 Days: No Contact w/Intl Traveler <30 Da: No Traveled to Known Affected Are: No History of Present Illness This is a 76-year-old male with a PMH of HTN, DM and Dementia who was sent to the ER from SNF secondary to witnessed fall. Pt unable to provide any history due to significant dementia. Per report, pt w/ witnessed fall from standing position, no LOC reported. On arrival, BP 111/65, HR 78, O2 sat 98% on RA, Afebrile. CBC essentially unremarkable. Chemistry essentially unremarkable. INR 1.2. UA with moderate LE. CT Head with bilateral subdural hygromas with mild underlying mass effect, similar to previous. CT T-spine with T1 superior endplate fracture identified, acute. Dr. Carter consulted by ER physician, will evaluate in consultation. Of note, patient was seen in ER on 07/16/17 for AMS, found to have UTI, d/c'd on Levaquin. Urine Cultures 07/16/17 +Staph Epi, resistant to Levaquin. S/p Macrobid in ER. Review of Systems Except as stated in HPI: all other systems reviewed are Neg ROS: Unable to obtain secondary to dementia. Past Family Social History Past Medical History PMH: HTN, DM and Dementia Past Surgical History PAST SURGICAL HISTORY: Unknown Allergies: Coded Allergies: No Known Allergies (Unverified , 07/25/17) Family History PAST FAMILY HISTORY: Reviewed. No h/o DM or CAD Social History PAST SOCIAL HISTORY: Reportedly negative for alcohol, tobacco or drugs. Physical Exam Vital Signs Vital Signs Date Time Temp Pulse Resp B/P (MAP) Pulse Ox O2 Delivery O2 Flow Rate FiO2 07/25/17 22:25 98 Room Air 07/25/17 19:49 98.2 78 16 111/65 98 Physical Exam PE: GENERAL: Demented elderly white male in no acute distress. HEENT: PERRLA, EOMI. No scleral icterus or conjunctival pallor. No lid lag or facial droop. Scalp hematoma, posterior. CARDIOVASCULAR: Regular rate and rhythm. No obvious murmurs to auscultation. No chest tenderness to palpation. RESPIRATORY: No obvious rhonchi or wheezing. Clear to auscultation. Breath sounds equal bilaterally. GASTROINTESTINAL: Abdomen soft, non-tender, nondistended. BS normal. MUSCULOSKELETAL: Extremities without clubbing, cyanosis, or edema. No obvious deformities. NEUROLOGICAL: Awake, demented, confused. No focal neurologic deficits. Moving both upper and lower extremities spontaneously. Laboratory Laboratory Tests Test 07/25/17 22:05 White Blood Count 10.9 Red Blood Count 3.65 Hemoglobin 11.2 Hematocrit 33.5 Mean Corpuscular Volume 91.8 Mean Corpuscular Hemoglobin 30.6 Mean Corpuscular Hemoglobin Concent 33.3 Red Cell Distribution Width 15.2 Platelet Count 284 Mean Platelet Volume 7.7 Neutrophils (%) (Auto) 75.7 Lymphocytes (%) (Auto) 14.4 Monocytes (%) (Auto) 7.2 Eosinophils (%) (Auto) 2.4 Basophils (%) (Auto) 0.3 Neutrophils # (Auto) 8.3 Lymphocytes # (Auto) 1.6 Monocytes # (Auto) 0.8 Eosinophils # (Auto) 0.3 Basophils # (Auto) 0.0 CBC Comment DIFF FINAL Differential Comment Urine Color YELLOW Urine Turbidity CLEAR Urine pH 6.5 Urine Specific [place] 1.014 Urine Protein NEG Urine Glucose (UA) NEG Urine Ketones NEG Urine Occult Blood NEG Urine Nitrite NEG Urine Bilirubin NEG Urine Urobilinogen LESS THAN 2.0 Urine Leukocyte Esterase MOD Urine RBC 1 Urine WBC 3 Urine Squamous Epithelial Cells <1 Urine Mucus FEW Microscopic Urinalysis Comment CULT NOT INDICATED Blood Urea Nitrogen 29 Creatinine 1.13 Random Glucose 116 Total Protein 6.4 Albumin 3.0 Calcium Level 8.3 Alkaline Phosphatase 101 Aspartate Amino Transf (AST/SGOT) 17 Alanine Aminotransferase (ALT/SGPT) 14 Total Bilirubin 0.2 Sodium Level 141 Potassium Level 4.0 Chloride Level 106 Carbon Dioxide Level 30.1 Anion Gap 5 Estimat Glomerular Filtration Rate 63 Result Diagram: 07/25/17220407/25/175 Caprini VTE Risk Assessment Caprini VTE Risk Assessment: No/Low Risk (score <= 1) Caprini Risk Assessment Model Point Value = 1 Point Value = 2 Point Value = 3 Point Value = 5 Age 41-60 Minor surgery BMI > 25 kg/m2 Swollen legs Varicose veins or History of unexplained or recurrent spontaneous Oral contraceptives or hormone replacement Sepsis (< 1 month) Serious lung disease, including pneumonia (< 1 month) Abnormal pulmonary function Acute myocardial infarction Congestive heart failure (< 1 month) History of inflammatory bowel disease Medical patient at bed rest Age 61-74 Arthroscopic surgery Major open surgery (> 45 min) Laparoscopic surgery (> 45 min) Malignancy Confined to bed (> 72 hours) Immobilizing plaster cast Central venous access Age >= 75 History of VTE Family history of VTE Factor V Leiden Prothrombin [id number] Lupus anticoagulant Anticardiolipin antibodies Elevated serum homocysteine Heparin-induced thrombocytopenia Other congenital or acquired thrombophilia Stroke (< 1 month) Elective arthroplasty Hip, pelvis, or leg fracture Acute spinal cord injury (< 1 month) Prophylaxis Regimen Total Risk Factor Score Risk Level Prophylaxis Regimen 0-1 Low Early ambulation 2 Moderate Order ONE of the following: *Sequential Compression Device (SCD) *Heparin 5000 units SQ BID 3-4 Higher Order ONE of the following medications: *Heparin 5000 units SQ TID *Enoxaparin/Lovenox 40 mg SQ daily (WT < 150 kg, CrCl > 30 mL/min) *Enoxaparin/Lovenox 30 mg SQ daily (WT < 150 kg, CrCl > 10-29 mL/min) *Enoxaparin/Lovenox 30 mg SQ BID (WT < 150 kg, CrCl > 30 mL/min) AND/OR *Sequential Compression Device (SCD) 5 or more Highest Order ONE of the following medications: *Heparin 5000 units SQ TID (Preferred with Epidurals) *Enoxaparin/Lovenox 40 mg SQ daily (WT < 150 kg, CrCl > 30 mL/min) *Enoxaparin/Lovenox 30 mg SQ daily (WT < 150 kg, CrCl > 10-29 mL/min) *Enoxaparin/Lovenox 30 mg SQ BID (WT < 150 kg, CrCl > 30 mL/min) AND *Sequential Compression Device (SCD) Assessment and Plan Problem List: (1) Fall ICD Code: W19.XXXA - Unspecified fall, initial encounter Status: Acute (2) T1 vertebral fracture ICD Code: S22.019A - Unspecified fracture of first thoracic vertebra, initial encounter for closed fracture Status: Acute (3) Dementia ICD Code: F03.90 - Unspecified dementia without behavioral disturbance (4) UTI (urinary tract infection) ICD Code: N39.0 - Urinary tract infection, site not specified (5) DM (diabetes mellitus) ICD Code: E11.9 - Type 2 diabetes mellitus without complications Assessment and Plan A/P: 1. Fall: s/p mechanical fall from standing position at SNF, witnessed, no LOC reported. CT Head w/ bilateral subdural hygromas, no acute findings, images reviewed by me. High risk for recurrent fall, place on Fall Precautions. 2. T1 Vertebral Fx: secondary to above, CT C-Spine w/ acute T1 superior endplate fracture w/ mild loss of vertebral height, images reviewed by me. Dr. Carter consulted by ER physician, no emergent intervention, will eval in am. 3. Dementia: Significant. Requires constant re-direction, trying to get out of bed. Sitter. Resume home Namenda, Seroquel, Remeron. Haldol prn. 4. UTI: U/a on 07/16/17 w/ UTI, on Levaquin however cultures showing resistant strain. U/a w/ moderate LE and mild bacteriuria, s/p Macrobid in ER, will continue. 5. DM: Sliding scale w/ Accu-Cheks. 6. DVT Prophylaxis: SCD/Teds. 7. Social work for d/c planning as needed. 8. Case discussed w/ ER physician at length, labs/records/imaging reviewed by me. Physician Certification 2 Midnight Certification Type: Admission for Inpatient Services Order for Inpatient Services The services are ordered in accordance with Medicare regulations or non- Medicare payer requirements, as applicable. In the case of services not specified as inpatient-only, they are appropriately provided as inpatient services in accordance with the 2-midnight benchmark. Estimated LOS (days): 2 days is the estimated time the patient will need to remain in the hospital, assuming treatment plan goals are met and no additional complications. Post-Hospital Plan: Not yet determined Problem Qualifiers (1) Fall: Qualified Codes: W19.XXXA - Unspecified fall, initial encounter (2) T1 vertebral fracture: Qualified Codes: S22.010A - Wedge compression fracture of first thoracic vertebra, initial encounter for closed fracture Chantal Loaiza MD Jul 25, 2017 23:28
[2017-07-25] MEDS ORDERED: DEXTROSE 50% IN WATER 50 ML VIAL(D50) IV PUSH PRN (23:30)
[2017-07-25] MEDS ORDERED: MORPHINE SULFATE 2 MG/ML INJ IV PUSH PRN (23:30)
[2017-07-25] MEDS ORDERED: ONDANSETRON HCL 4 MG/2 ML VIAL IVP PRN (23:30)
[2017-07-25] MEDS ORDERED: SENNOSIDES 8.6 MG TAB PO PRN (23:30)
[2017-07-25] MEDS ORDERED: GLUCAGON 1 MG/ML VIAL OTHER PRN (23:30)
[2017-07-25] MEDS ORDERED: LACTULOSE SYRUP 20 GM/30 ML CUP PO PRN (23:30)
[2017-07-25] MEDS ORDERED: BISACODYL 10 MG SUPP RECTAL PRN (23:30)
[2017-07-25] MEDS ORDERED: MIRTAZAPINE 15 MG TAB PO SCH (23:30)
[2017-07-25] MEDS ORDERED: MAGNESIUM HYDROXIDE SUSP 30 ML CUP PO PRN (23:30)
[2017-07-25] MEDS ORDERED: ACETAMINOPHEN 325 MG TAB PO PRN (23:30)
[2017-07-25] MEDS ORDERED: FAMOTIDINE 20 MG TAB PO PRN (23:30)
[2017-07-25] MEDS: HALOPERIDOL LACTATE 5 MG/ML AMP IM PRN (23:48)
[2017-07-25 23:51] LABS: INTERNATIONAL NORMALIZED RATIO 1.2 RATIO; PROTHROMBIN TIME - PATIENT 11.7 SEC (9.8-11.6)
[2017-07-26] VITALS (7 sets, daily range): BP systolic 105–140; BP diastolic 67–82; PULSE 82–100; RESP 16–18; TEMP 96.2–97.8; O2SAT 94–98
[2017-07-26] MEDS: INSULIN ASPART SUPPLEMENTAL SCALE SQ SCH ×4 (08:00→21:00)
[2017-07-26 08:19] LABS: AUTOMATED NEUTROPHIL # 6.9 TH/MM3 (1.8-7.7); BASOPHIL % 0.5 % (0.0-2.0); EOSINOPHIL # 0.3 TH/MM3 (0-0.4); HEMATOCRIT 35.9 % (39.0-51.0); LYMPH % 15.1 % (9.0-44.0); LYMPHOCYTE # 1.4 TH/MM3 (1.0-4.8); MEAN CELL VOLUME 92.5 FL (80.0-100.0); MEAN CORPUSCULAR HEMOGLOBIN 30.9 PG (27.0-34.0); MEAN CORPUSCULAR HGB CONC 33.4 % (32.0-36.0); MEAN PLATELET VOLUME 7.8 FL (7.0-11.0); MONO % 8.6 % (0.0-8.0); MONOCYTE # 0.8 TH/MM3 (0-0.9); NEUT % 72.8 % (16.0-70.0); PLATELET COUNT 286 TH/MM3 (150-450); RED BLOOD COUNT 3.88 MIL/MM3 (4.50-5.90); RED CELL DISTRIBUTION WIDTH 15.5 % (11.6-17.2); WHITE BLOOD COUNT 9.5 TH/MM3 (4.0-11.0)
[2017-07-26 08:47] LABS: ALKALINE PHOSPHATASE 117 U/L (45-117); TOTAL BILIRUBIN ADULT 0.3 MG/DL (0.2-1.0); TOTAL PROTEIN 6.7 GM/DL (6.4-8.2)
[2017-07-26 08:53] LABS: ALBUMIN 3.1 GM/DL (3.4-5.0); ALT (GPT) 14 U/L (12-78); AST (GOT) 23 U/L (15-37); BICARBONATE 30.8 MEQ/L (21.0-32.0); BLOOD UREA NITROGEN 24 MG/DL (7-18); CALCIUM 8.9 MG/DL (8.5-10.1); CHLORIDE 108 MEQ/L (98-107); CREATININE 0.93 MG/DL (0.60-1.30); GLOMERULAR FILTRATION RATE 79 ML/MIN (>89); GLUCOSE,RANDOM 96 MG/DL (74-106); SODIUM (NA) 143 MEQ/L (136-145)
[2017-07-26] MEDS: TIMOLOL MALEATE 0.25% OPHT SOLN 5 ML BTL LEFT EYE SCH ×2 (09:00→23:18)
--- NOTE | 2017-07-26 09:08 | EKG ---
Date Performed: 07/25/2017 Time Performed: 22:48:45 PTAGE: 76 years EKG: Sinus rhythm MODERATE ST DEPRESSION ABNORMAL ECG PREVIOUS TRACING : 06/29/2017 01.42 DOCTOR: Nikita Dominguez Interpretating Date/Time 07/26/2017 09:05:53
[2017-07-26] MEDS ORDERED: SODIUM CHLORID 0.9% 500 ML INJ 500 ML IV ONE (10:00)
--- NOTE | 2017-07-26 10:05 | HHI.PR ---
Subjective Remarks in no acute distress. pain is controlled. questionable dysphagia per RN. no other acute issues over night. Objective Vitals Vital Signs Date Time Temp Pulse Resp B/P (MAP) Pulse Ox O2 Delivery O2 Flow Rate FiO2 07/26/17 08:00 97.7 84 17 109/73 (85) 97 07/26/17 04:00 97.6 83 16 111/77 (88) 94 07/26/17 00:30 97.1 90 16 115/75 (88) 95 07/26/17 00:29 07/26/17 00:00 82 16 125/82 (96) 98 Room Air 07/25/17 22:25 98 Room Air 07/25/17 19:49 98.2 78 16 111/65 (80) 98 I/O 07/25/17 07/25/17 07/25/17 07/26/17 07/26/17 07/26/17 07:00 15:00 23:00 07:00 15:00 23:00 Intake Total 200 ml Balance 200 ml Intake Oral 200 ml # Voids 1 Result Diagram: 07/26/17 0712 07/26/17 0712 Imaging Last Impressions Head CT 07/25/17 0000 Signed Impressions: Service Date/Time: Tuesday, July 25, 2017 21:23 - CONCLUSION: 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 Agustin Ennis MD Cervical Spine CT 07/25/17 0000 Signed Impressions: Service Date/Time: Tuesday, July 25, 2017 21:23 - CONCLUSION: T1 superior endplate fracture identified, acute. Mild loss of vertebral body height. Agustin Ennis MD Objective Remarks GENERAL: This is a well-nourished, well-developed patient, in no apparent distress. CARDIOVASCULAR: Regular rate and regular rhythm without murmurs, gallops, or rubs. RESPIRATORY: Clear to auscultation. Breath sounds equal bilaterally. No wheezes , rales, or rhonchi. GASTROINTESTINAL: Abdomen soft, non-tender, nondistended. Normal, active bowel sounds MUSCULOSKELETAL: Extremities without clubbing, cyanosis, or edema. NEURO: Awake and alert. Medications and IVs Inpatient Medications Acetaminophen (Tylenol) 650 mg Q6H PRN PO FEVER/PAIN SCALE 1 TO 2; Start at 23:30 Acetaminophen/ Hydrocodone Bitart ([place] 5-325 Mg) 1 tab Q4H PRN PO PAIN SCALE 3 TO 5; Start 07/25/17 at 23:30 Bisacodyl (Dulcolax Supp) 10 mg DAILY PRN RECTAL SEVERE CONSITIPATION / IF NPO ; Start 07/25/17 at 23:30 Clonazepam (KlonoPIN) 0.5 mg BID PO ; Start 07/26/17 at 09:00 Dextrose (D50w (Vial) Inj) 50 ml UNSCH PRN IV PUSH HYPOGLYCEMIA-SEE COMMENTS; Start 07/25/17 at 23:30 Famotidine (Pepcid) 20 mg DAILY PRN PO INDIGESTION; Start 07/25/17 at 23:30 Glucagon (Glucagon Inj) 1 mg UNSCH PRN OTHER HYPOGLYCEMIA-SEE COMMENTS; Start 07/25/17 at 23:30 Haloperidol Lactate (Haldol Inj) 5 mg Q4H PRN IM AGITATION Last administered on 07/25/17at 23:48; Start 07/25/17 at 23:30 Insulin Aspart (NovoLOG SUPPLEMENTAL SCALE) 1 ACHS SLIDING SCALE SQ ; Start 07/26/17 at 08:00 Lactulose (Lactulose Liq) 30 ml DAILY PRN PO SEVERE CONSITIPATION / IF PO; Start 07/25/17 at 23:30 Magnesium Hydroxide (Milk Of Magnesia Liq) 30 ml Q12H PRN PO Mild constipation ; Start 07/25/17 at 23:30 Memantine (Namenda) 10 mg BID PO ; Start 07/26/17 at 09:00 Metoprolol Tartrate (Lopressor) 25 mg DAILY PO ; Start 07/26/17 at 09:00 Mirtazapine (Remeron) 15 mg HS PO ; Start 07/25/17 at 23:30 Morphine Sulfate (Morphine Inj) 2 mg Q3H PRN IV PUSH Pain 6-10 Last administered on 07/25/17at 23:49; Start 07/25/17 at 23:30 Nitrofurantoin Macrocrystals (Macrobid) 100 mg BIDPC PO ; Start 07/26/17 at 09:00 Ondansetron HCl (Zofran Inj) 4 mg Q6H PRN IVP NAUSEA OR VOMITING; Start at 23:30 Pravastatin Sodium (Pravachol) 80 mg HS PO ; Start 07/26/17 at 21:00 Quetiapine Fumarate (SEROquel) 50 mg BID PO ; Start 07/26/17 at 09:00 Ramipril (Altace) 5 mg DAILY PO ; Start 07/26/17 at 09:00 Senna/Docusate Sodium (Vivian-Colace) 1 tab BID PO ; Start 07/26/17 at 09:00 Sennosides (Senokot) 17.2 mg Q12H PRN PO Moderate constipation; Start 07/25/17 at 23:30 Sodium Chloride (NS Flush) 2 ml BID IV FLUSH ; Start 07/26/17 at 09:00 Tetanus/ Diphtheria Toxoids (Tetanus/ Diphtheria Tox Adult) 0.5 ml ONCE ONCE IM Last administered on 07/25/17at 21:27; Start 07/25/17 at 21:15; Stop 07/25/17 at 21:16; Status DC Timolol Maleate (Timoptic 0.25% Opth Soln) 1 drop BID LEFT EYE ; Start 07/26/17 at 09:00 A/P Problem List: (1) Fall ICD Code: W19.XXXA - Unspecified fall, initial encounter Status: Acute (2) T1 vertebral fracture ICD Code: S22.019A - Unspecified fracture of first thoracic vertebra, initial encounter for closed fracture Status: Acute (3) Dementia ICD Code: F03.90 - Unspecified dementia without behavioral disturbance (4) UTI (urinary tract infection) ICD Code: N39.0 - Urinary tract infection, site not specified (5) DM (diabetes mellitus) ICD Code: E11.9 - Type 2 diabetes mellitus without complications Assessment and Plan 1. Fall: s/p mechanical fall from standing position at SNF, witnessed, no LOC reported. CT Head w/ bilateral subdural hygromas, no acute findings. High risk for recurrent fall, placed on Fall Precautions. 2. T1 Vertebral Fx: secondary to above, CT C-Spine w/ acute T1 superior endplate fracture w/ mild loss of vertebral height. Dr. Carter consulted by ER physician. 3. Dementia: Significant. Requires constant re-direction, trying to get out of bed. Sitter. Resumed home Namenda, Seroquel, Remeron. Haldol prn. 4. UTI: U/a on 07/16/17 w/ UTI, on Levaquin however cultures showing resistant strain. U/a w/ moderate LE and mild bacteriuria, s/p Macrobid in ER, will continue. 5.questionable dysphagia; keep NPO for now till seen by ST. 6. DM: Sliding scale w/ Accu-Cheks. 7. DVT Prophylaxis: SCD/Teds. Problem Qualifiers (1) Fall: Qualified Codes: W19.XXXA - Unspecified fall, initial encounter (2) T1 vertebral fracture: Qualified Codes: S22.010A - Wedge compression fracture of first thoracic vertebra, initial encounter for closed fracture Xavier Escamilla MD Jul 26, 2017 10:04
--- NOTE | 2017-07-26 12:35 | PD.CONS ---
[facility] Service Neurosurg Consult Requested By [facility] Reason for Consult T1 fracture Primary Care Physician Dhiraj Larson MD History of Present Illness This is a 76-year-old male with history of HTN, DM and Dementia who was sent to the ER from SNF secondary to witnessed fall. Pt unable to provide any history due to significant dementia. Per report, pt w/ witnessed fall from standing position, no loss of consiousness. No seizure activity. No tongue bitting. No incontinence of sotol or urine,. He was moving all 4 extremities. No focal weakness. No sensory loss. Apparently he has suffered multiple, recurrent falls. He reports neck pain. his pain is located at the cervicothoracic junction. he has a pacemaker and he is unable to undergo MRI. He is moving all upper and lower extremities well. No sensory deficit. No incontinence of stool or urine. CT Head with bilateral subdural hygromas with mild underlying mass effect CT T-spine with T1 superior endplate fracture identified, acute. Neurosurgery consultation was requested Review of Systems Unable to obtain secondary to dementia. Past Family Social History Allergies: Coded Allergies: No Known Allergies (Unverified , 07/25/17) Past Medical History PMH: HTN, DM and Dementia Past Surgical History Social History Reportedly negative for alcohol, tobacco or drugs. Physical Exam Vital Signs Vital Signs Date Time Temp Pulse Resp B/P (MAP) Pulse Ox O2 Delivery O2 Flow Rate FiO2 07/26/17 12:00 96.2 84 18 105/67 (80) 97 07/26/17 08:00 97.7 84 17 109/73 (85) 97 07/26/17 04:00 97.6 83 16 111/77 (88) 94 07/26/17 00:30 97.1 90 16 115/75 (88) 95 07/26/17 00:29 07/26/17 00:00 82 16 125/82 (96) 98 Room Air 07/25/17 22:25 98 Room Air 07/25/17 19:49 98.2 78 16 111/65 (80) 98 Physical Exam The patient is alert, confused, oriented to self. Cranial nerve examination demonstrates the pupils to be equal, round, and reactive to light. Extra-ocular movements are intact with normal convergence. Facial motor function appears normal and symmetrical. Face sensation, hearing, visual alexander, and olfaction can not be assessed properly due to the patients condition. The patient has an intact corneal reflex and a gag reflex. Sternocleidomastoid and trapezius have normal and symmetrical strength. Other cranial nerves are intact. Neck is soft and supple. Cervical spine has a normal range of motion of the cervical spine without pain. There is no tenderness to palpation to the spinous processes or paraspinal muscles. Muscle testing reveals normal bulk and tone overall without rigidity, spasticity , fasciculations, or atrophy. Muscle strength is 5/5 in all muscle groups of both upper and lower extremities. Deep tendon reflexes are 1+ and symmetrical in the biceps, triceps, and brachioradialis, bilaterally, in the upper extremities. In the lower extremities , the patellar and Achilles are 1+, bilaterally. There is a bilateral plantar flexion response. Hoffmanns sign is negative. There is no clonus or other abnormal reflexes noted. Cerebellar examination is limited due to the patient condition CARDIOVASCULAR: Regular rate and rhythm. No obvious murmurs to auscultation. No chest tenderness to palpation. RESPIRATORY: No obvious rhonchi or wheezing. Clear to auscultation. Breath sounds equal bilaterally. GASTROINTESTINAL: Abdomen soft, non-tender, nondistended. BS normal. MUSCULOSKELETAL: Extremities without clubbing, cyanosis, or edema. No obvious deformities. Laboratory Laboratory Tests Test 07/25/17 22:05 07/26/17 07:12 White Blood Count 10.9 9.5 Red Blood Count 3.65 3.88 Hemoglobin 11.2 12.0 Hematocrit 33.5 35.9 Mean Corpuscular Volume 91.8 92.5 Mean Corpuscular Hemoglobin 30.6 30.9 Mean Corpuscular Hemoglobin Concent 33.3 33.4 Red Cell Distribution Width 15.2 15.5 Platelet Count 284 286 Mean Platelet Volume 7.7 7.8 Neutrophils (%) (Auto) 75.7 72.8 Lymphocytes (%) (Auto) 14.4 15.1 Monocytes (%) (Auto) 7.2 8.6 Eosinophils (%) (Auto) 2.4 3.0 Basophils (%) (Auto) 0.3 0.5 Neutrophils # (Auto) 8.3 6.9 Lymphocytes # (Auto) 1.6 1.4 Monocytes # (Auto) 0.8 0.8 Eosinophils # (Auto) 0.3 0.3 Basophils # (Auto) 0.0 0.0 CBC Comment DIFF FINAL DIFF FINAL Differential Comment Prothrombin Time 11.7 Prothromb Time International Ratio 1.2 Activated Partial Thromboplast Time 32.9 Urine Color YELLOW Urine Turbidity CLEAR Urine pH 6.5 Urine Specific [place] 1.014 Urine Protein NEG Urine Glucose (UA) NEG Urine Ketones NEG Urine Occult Blood NEG Urine Nitrite NEG Urine Bilirubin NEG Urine Urobilinogen LESS THAN 2.0 Urine Leukocyte Esterase MOD Urine RBC 1 Urine WBC 3 Urine Squamous Epithelial Cells <1 Urine Mucus FEW Microscopic Urinalysis Comment CULT NOT INDICATED Blood Urea Nitrogen 29 24 Creatinine 1.13 0.93 Random Glucose 116 96 Total Protein 6.4 6.7 Albumin 3.0 3.1 Calcium Level 8.3 8.9 Alkaline Phosphatase 101 117 Aspartate Amino Transf (AST/SGOT) 17 23 Alanine Aminotransferase (ALT/SGPT) 14 14 Total Bilirubin 0.2 0.3 Sodium Level 141 143 Potassium Level 4.0 4.4 Chloride Level 106 108 Carbon Dioxide Level 30.1 30.8 Anion Gap 5 4 Estimat Glomerular Filtration Rate 63 79 Result Diagram: 07/26/17 0712 07/26/17 0712 Imaging Last [address] 07/25/17 0000 Signed Impressions: Service Date/Time: Tuesday, July 25, 2017 21:23 - CONCLUSION: 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 Agustin Ennis MD Cervical Spine CT 07/25/17 0000 Signed Impressions: Service Date/Time: Tuesday, July 25, 2017 21:23 - CONCLUSION: T1 superior endplate fracture identified, acute. Mild loss of vertebral body height. Agustin Ennis MD Assessment and Plan Assessment and Plan Caprini VTE Risk Assessment Caprini VTE Risk Assessment Caprini VTE Risk Assessment: No/Low Risk (score <= 1) Caprini Risk Assessment Model Point Value = 1 Point Value = 2 Point Value = 3 Point Value = 5 Age 41-60 Minor surgery BMI > 25 kg/m2 Swollen legs Varicose veins or History of unexplained or recurrent spontaneous Oral contraceptives or hormone replacement Sepsis (< 1 month) Serious lung disease, including pneumonia (< 1 month) Abnormal pulmonary function Acute myocardial infarction Congestive heart failure (< 1 month) History of inflammatory bowel disease Medical patient at bed rest Age 61-74 Arthroscopic surgery Major open surgery (> 45 min) Laparoscopic surgery (> 45 min) Malignancy Confined to bed (> 72 hours) Immobilizing plaster cast Central venous access Age >= 75 History of VTE Family history of VTE Factor V Leiden Prothrombin [id number] Lupus anticoagulant Anticardiolipin antibodies Elevated serum homocysteine Heparin-induced thrombocytopenia Other congenital or acquired thrombophilia Stroke (< 1 month) Elective arthroplasty Hip, pelvis, or leg fracture Acute spinal cord injury (< 1 month) Prophylaxis Regimen Total Risk Factor Score Risk Level Prophylaxis Regimen 0-1 Low Early ambulation 2 Moderate Order ONE of the following: *Sequential Compression Device (SCD) *Heparin 5000 units SQ BID 3-4 Higher Order ONE of the following medications: *Heparin 5000 units SQ TID *Enoxaparin/Lovenox 40 mg SQ daily (WT < 150 kg, CrCl > 30 mL/min) *Enoxaparin/Lovenox 30 mg SQ daily (WT < 150 kg, CrCl > 10-29 mL/min) *Enoxaparin/Lovenox 30 mg SQ BID (WT < 150 kg, CrCl > 30 mL/min) AND/OR *Sequential Compression Device (SCD) 5 or more Highest Order ONE of the following medications: *Heparin 5000 units SQ TID (Preferred with Epidurals) *Enoxaparin/Lovenox 40 mg SQ daily (WT < 150 kg, CrCl > 30 mL/min) *Enoxaparin/Lovenox 30 mg SQ daily (WT < 150 kg, CrCl > 10-29 mL/min) *Enoxaparin/Lovenox 30 mg SQ BID (WT < 150 kg, CrCl > 30 mL/min) AND *Sequential Compression Device (SCD) Attending Statement (1) Fall Diagnosis: Principal (2) T1 vertebral fracture Diagnosis: Principal (3) Dementia Diagnosis: Principal (4) UTI (urinary tract infection) Diagnosis: Principal (5) DM (diabetes mellitus) Diagnosis: Principal I reviewed his clinical and radiological studies Head CT 07/25/17 0000 Signed Impressions: Service Date/Time: Tuesday, July 25, 2017 21:23 - CONCLUSION: 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 Agustin Ennis MD Cervical Spine CT 07/25/17 0000 Signed Impressions: Service Date/Time: Tuesday, July 25, 2017 21:23 - CONCLUSION: T1 superior endplate fracture identified, acute. Mild loss of vertebral body height. Agustin Ennis MD neuro checks in a serial fashion. Non surgical treatment for hygromas. Avoid further falls T1 vertebral fracture. Non surgical treatment. recommend Bracing spine with [place] J collar Dementia. . Resume home Namenda, Seroquel, Remeron. Haldol prn. . Consult neurology UTI (urinary tract infection). UA and cultures. on Levaquin however cultures showing resistant strain. U/a w/ moderate LE and mild bacteriuria, s/p Macrobid given in ER, . Pulmonary.. Continue aggressive pulmonary toilette, nasotracheal suction, and breathing treatments with nebulizers. Renal. monitor closely urine output, BUN and creatinine Diabetes mellitus Monitor serial Acu checks and SSI as needed in detail Protonix for stress ulcer prophylaxis Alfredito fam and SCD's for DVT prophylaxis Bhavin Carter MD Jul 26, 2017 12:35
[2017-07-26] MEDS: NITROFURANTOIN MONOHYD MACROCR 100 MG CAP PO SCH ×2 (15:47→17:32)
[2017-07-26] MEDS: QUEtiapine FUMARATE 25 MG TAB PO SCH ×2 (15:47→20:47)
[2017-07-26] MEDS: clonazePAM 0.5 MG TAB PO SCH ×2 (15:47→20:47)
[2017-07-26] MEDS: RAMIPRIL 5 MG CAP PO SCH (15:48)
[2017-07-26] MEDS: SODIUM CHLORIDE 0.9% FLUSH 10 ML FLUSH IV FLUSH SCH ×2 (15:48→21:00)
[2017-07-26] MEDS: METOPROLOL TARTRATE 25 MG TAB PO SCH (15:48)
[2017-07-26] MEDS: MEMANTINE HCL 10 MG TAB PO SCH ×2 (15:48→20:47)
[2017-07-26] MEDS: DOCUSATE SODIUM 50 MG/SENNA 8.6 MG TAB PO SCH ×2 (15:48→20:47)
[2017-07-26] MEDS: HALOPERIDOL LACTATE 5 MG/ML AMP IM PRN (17:31)
[2017-07-26] MEDS ORDERED: PRAVASTATIN SOD 40 MG TAB PO SCH (21:00)
[2017-07-27] VITALS: BP 100/68; PULSE 87; RESP 15; TEMP 98; O2SAT 96
[2017-07-27] MEDS: INSULIN ASPART SUPPLEMENTAL SCALE SQ SCH ×2 (08:00→12:00)
[2017-07-27 08:12] VITALS: BP 111/66; PULSE 85; RESP 18; TEMP 96.2; O2SAT 95
[2017-07-27] MEDS: DOCUSATE SODIUM 50 MG/SENNA 8.6 MG TAB PO SCH (09:00)
[2017-07-27] MEDS: SODIUM CHLORIDE 0.9% FLUSH 10 ML FLUSH IV FLUSH SCH (09:00)
[2017-07-27] MEDS: METOPROLOL TARTRATE 25 MG TAB PO SCH (09:00)
--- NOTE | 2017-07-27 09:39 | HHI.PR ---
Subjective Remarks in no acute distress. resting comfortably. pain is controlled. d/w the RN and no acute issues over night. Objective Vitals Vital Signs Date Time Temp Pulse Resp B/P (MAP) Pulse Ox O2 Delivery O2 Flow Rate FiO2 07/27/17 08:12 96.2 85 18 111/66 (81) 95 07/27/17 00:00 98.0 87 15 100/68 (79) 96 07/26/17 20:00 97.5 100 16 112/75 (87) 97 07/26/17 16:00 97.8 96 18 140/75 (96) 96 07/26/17 12:00 96.2 84 18 105/67 (80) 97 I/O 07/26/17 07/26/17 07/26/17 07/27/17 07/27/17 07/27/17 07:00 15:00 23:00 07:00 15:00 23:00 Intake Total 200 ml 300 ml Output Total 500 ml Balance 200 ml -500 ml 300 ml Intake Oral 200 ml 300 ml Output Urine Total 500 ml # Voids 1 2 2 # Bowel Movements 0 Result Diagram: 07/26/17 0712 07/26/17 0712 Imaging Last Impressions Head CT 07/25/17 0000 Signed Impressions: Service Date/Time: Tuesday, July 25, 2017 21:23 - CONCLUSION: 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 Agustin Ennis MD Cervical Spine CT 07/25/17 0000 Signed Impressions: Service Date/Time: Tuesday, July 25, 2017 21:23 - CONCLUSION: T1 superior endplate fracture identified, acute. Mild loss of vertebral body height. Agustin Ennis MD Objective Remarks GENERAL: This is a well-nourished, well-developed patient, in no apparent distress. CARDIOVASCULAR: Regular rate and regular rhythm without murmurs, gallops, or rubs. RESPIRATORY: Clear to auscultation. Breath sounds equal bilaterally. No wheezes , rales, or rhonchi. GASTROINTESTINAL: Abdomen soft, non-tender, nondistended. Normal, active bowel sounds MUSCULOSKELETAL: Extremities without clubbing, cyanosis, or edema. NEURO: Awake and alert. Procedures none Medications and IVs Inpatient Medications Acetaminophen (Tylenol) 650 mg Q6H PRN PO FEVER/PAIN SCALE 1 TO 2; Start at 23:30 Acetaminophen/ Hydrocodone Bitart ([place] 5-325 Mg) 1 tab Q4H PRN PO PAIN SCALE 3 TO 5; Start 07/25/17 at 23:30 Bisacodyl (Dulcolax Supp) 10 mg DAILY PRN RECTAL SEVERE CONSITIPATION / IF NPO ; Start 07/25/17 at 23:30 Clonazepam (KlonoPIN) 0.5 mg BID PO Last administered on 07/26/17 20:47; Start 07/26/17 at 09:00 Dextrose (D50w (Vial) Inj) 50 ml UNSCH PRN IV PUSH HYPOGLYCEMIA-SEE COMMENTS; Start 07/25/17 at 23:30 Famotidine (Pepcid) 20 mg DAILY PRN PO INDIGESTION; Start 07/25/17 at 23:30 Glucagon (Glucagon Inj) 1 mg UNSCH PRN OTHER HYPOGLYCEMIA-SEE COMMENTS; Start 07/25/17 at 23:30 Haloperidol Lactate (Haldol Inj) 5 mg Q4H PRN IM AGITATION Last administered on 07/26/17at 17:31; Start 07/25/17 at 23:30 Insulin Aspart (NovoLOG SUPPLEMENTAL SCALE) 1 ACHS SLIDING SCALE SQ Last administered on 07/26/17 17:32; Start 07/26/17 at 08:00 Lactulose (Lactulose Liq) 30 ml DAILY PRN PO SEVERE CONSITIPATION / IF PO; Start 07/25/17 at 23:30 Magnesium Hydroxide (Milk Of Magnesia Liq) 30 ml Q12H PRN PO Mild constipation ; Start 07/25/17 at 23:30 Memantine (Namenda) 10 mg BID PO Last administered on 07/26/17 20:47; Start 07/26/17 at 09:00 Metoprolol Tartrate (Lopressor) 25 mg DAILY PO Last administered on 07/26/17 15 :48; Start 07/26/17 at 09:00 Mirtazapine (Remeron) 15 mg HS PO Last administered on 07/26/17 21:00; Start at 23:30 Morphine Sulfate (Morphine Inj) 2 mg Q3H PRN IV PUSH Pain 6-10 Last administered on 07/25/17at 23:49; Start 07/25/17 at 23:30 Nitrofurantoin Macrocrystals (Macrobid) 100 mg BIDPC PO Last administered on 15:47; Start 07/26/17 at 09:00 Ondansetron HCl (Zofran Inj) 4 mg Q6H PRN IVP NAUSEA OR VOMITING; Start at 23:30 Pravastatin Sodium (Pravachol) 80 mg HS PO Last administered on 07/26/17 20:47 ; Start 07/26/17 at 21:00 Quetiapine Fumarate (SEROquel) 50 mg BID PO Last administered on 07/26/17 20:47 ; Start 07/26/17 at 09:00 Ramipril (Altace) 5 mg DAILY PO Last administered on 07/26/17 15:48; Start 07/26 at 09:00 Senna/Docusate Sodium (Vivian-Colace) 1 tab BID PO Last administered on 07/26/17 20:47; Start 07/26/17 at 09:00 Sennosides (Senokot) 17.2 mg Q12H PRN PO Moderate constipation; Start 07/25/17 at 23:30 Sodium Chloride 500 ml @ 75 mls/hr Q6H40M ONCE IV Last administered on at 10:00; Start 07/26/17 at 10:00; Stop 07/26/17 at 16:39; Status DC Sodium Chloride (NS Flush) 2 ml BID IV FLUSH Last administered on 07/26/17 15: 48; Start 07/26/17 at 09:00 Tetanus/ Diphtheria Toxoids (Tetanus/ Diphtheria Tox Adult) 0.5 ml ONCE ONCE IM Last administered on 07/25/17 21:27; Start 07/25/17 at 21:15; Stop 07/25/17 at 21:16; Status DC Timolol Maleate (Timoptic 0.25% Opth Soln) 1 drop BID LEFT EYE Last administered on 07/26/17 23:18; Start 07/26/17 at 09:00 A/P Problem List: (1) Fall ICD Code: W19.XXXA - Unspecified fall, initial encounter Status: Acute (2) T1 vertebral fracture ICD Code: S22.019A - Unspecified fracture of first thoracic vertebra, initial encounter for closed fracture Status: Acute (3) Dementia ICD Code: F03.90 - Unspecified dementia without behavioral disturbance (4) UTI (urinary tract infection) ICD Code: N39.0 - Urinary tract infection, site not specified (5) DM (diabetes mellitus) ICD Code: E11.9 - Type 2 diabetes mellitus without complications Assessment and Plan 1. Fall: s/p mechanical fall from standing position at SNF, witnessed, no LOC reported. CT Head w/ bilateral subdural hygromas, no acute findings. High risk for recurrent fall, placed on Fall Precautions. 2. T1 Vertebral Fx: secondary to above, CT C-Spine w/ acute T1 superior endplate fracture w/ mild loss of vertebral height. Dr. Carter consulted and recommended non-op treatment with cervical collar. 3. Dementia: Significant. Requires constant re-direction, trying to get out of bed. Sitter. Resumed home Namenda, Seroquel, Remeron. Haldol prn. 4. UTI: U/a on 07/16/17 w/ UTI, on Levaquin however cultures showing resistant strain. U/a w/ moderate LE and mild bacteriuria, treated with Macrobid. 5.questionable dysphagia; evaluated by ST. 6. DM: Sliding scale w/ Accu-Cheks. 7. DVT Prophylaxis: SCD/Teds. Discharge Planning dc to SNF today if cleared by neurosurgery. see med list. f/u; pcp and neurosurgery. d/w the RN. Problem Qualifiers (1) Fall: Qualified Codes: W19.XXXA - Unspecified fall, initial encounter (2) T1 vertebral fracture: Qualified Codes: S22.010A - Wedge compression fracture of first thoracic vertebra, initial encounter for closed fracture Xavier Escamilla MD Jul 27, 2017 09:39
[2017-07-27] MEDS ORDERED: CLON0.5T PO (09:41)
[2017-07-27] MEDS ORDERED: HYDR-3516 PO (09:41)
[2017-07-27] MEDS ORDERED: NITR100C4 PO (09:41)
--- NOTE | 2017-07-27 09:42 | HHI.DS ---
Discharge Summary Admission Date Jul 25, 2017 at 23:26 Discharge Date: Jul 27, 2017 Admitting Diagnosis Fall, head injury, T1 fracture (1) Fall ICD Code: W19.XXXA - Unspecified fall, initial encounter Diagnosis: Principal Status: Acute (2) T1 vertebral fracture ICD Code: S22.019A - Unspecified fracture of first thoracic vertebra, initial encounter for closed fracture Diagnosis: Principal Status: Acute (3) Dementia ICD Code: F03.90 - Unspecified dementia without behavioral disturbance Diagnosis: Secondary (4) UTI (urinary tract infection) ICD Code: N39.0 - Urinary tract infection, site not specified Diagnosis: Secondary (5) DM (diabetes mellitus) ICD Code: E11.9 - Type 2 diabetes mellitus without complications Diagnosis: Secondary Procedures none Brief History - From Admission This is a 76-year-old male with a PMH of HTN, DM and Dementia who was sent to the ER from SNF secondary to witnessed fall. Pt unable to provide any history due to significant dementia. Per report, pt w/ witnessed fall from standing position, no LOC reported. On arrival, BP 111/65, HR 78, O2 sat 98% on RA, Afebrile. CBC essentially unremarkable. Chemistry essentially unremarkable. INR 1.2. UA with moderate LE. CT Head with bilateral subdural hygromas with mild underlying mass effect, similar to previous. CT T-spine with T1 superior endplate fracture identified, acute. Dr. Carter consulted by ER physician, will evaluate in consultation. Of note, patient was seen in ER on 07/16/17 for AMS, found to have UTI, d/c'd on Levaquin. Urine Cultures 07/16/17 +Staph Epi, resistant to Levaquin. S/p Macrobid in ER. CBC/BMP: 07/26/17 0712 07/26/17 0712 Significant Findings Laboratory Tests Test 07/25/17 22:05 07/26/17 07:12 Red Blood Count 3.65 MIL/MM3 (4.50-5.90) 3.88 MIL/MM3 (4.50-5.90) Hemoglobin 11.2 GM/DL (13.0-17.0) 12.0 GM/DL (13.0-17.0) Hematocrit 33.5 % (39.0-51.0) 35.9 % (39.0-51.0) Neutrophils (%) (Auto) 75.7 % (16.0-70.0) 72.8 % (16.0-70.0) Neutrophils # (Auto) 8.3 TH/MM3 (1.8-7.7) Prothrombin Time 11.7 SEC (9.8-11.6) Activated Partial Thromboplast Time 32.9 SEC (24.3-30.1) Urine Leukocyte Esterase MOD (NEG) Urine Mucus FEW /lpf (OCC) Blood Urea Nitrogen 29 MG/DL (7-18) 24 MG/DL (7-18) Random Glucose 116 MG/DL (74-106) Albumin 3.0 GM/DL (3.4-5.0) 3.1 GM/DL (3.4-5.0) Calcium Level 8.3 MG/DL (8.5-10.1) Estimat Glomerular Filtration Rate 63 ML/MIN (>89) 79 ML/MIN (>89) Monocytes (%) (Auto) 8.6 % (0.0-8.0) Chloride Level 108 MEQ/L (98-107) Anion Gap 4 MEQ/L (5-15) Imaging Last Impressions Head CT 07/25/17 0000 Signed Impressions: Service Date/Time: Tuesday, July 25, 2017 21:23 - CONCLUSION: 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 Agustin Ennis MD Cervical Spine CT 07/25/17 0000 Signed Impressions: Service Date/Time: Tuesday, July 25, 2017 21:23 - CONCLUSION: T1 superior endplate fracture identified, acute. Mild loss of vertebral body height. Agustin Ennis MD PE at Discharge GENERAL: This is a well-nourished, well-developed patient, in no apparent distress. CARDIOVASCULAR: Regular rate and regular rhythm without murmurs, gallops, or rubs. RESPIRATORY: Clear to auscultation. Breath sounds equal bilaterally. No wheezes , rales, or rhonchi. GASTROINTESTINAL: Abdomen soft, non-tender, nondistended. Normal, active bowel sounds MUSCULOSKELETAL: Extremities without clubbing, cyanosis, or edema. NEURO: Awake and alert. Hospital Course 1. Fall: s/p mechanical fall from standing position at SNF, witnessed, no LOC reported. CT Head w/ bilateral subdural hygromas, no acute findings. High risk for recurrent fall, placed on Fall Precautions. 2. T1 Vertebral Fx: secondary to above, CT C-Spine w/ acute T1 superior endplate fracture w/ mild loss of vertebral height. Dr. Carter consulted and recommended non-op treatment with cervical collar. 3. Dementia: Significant. Requires constant re-direction, trying to get out of bed. Sitter. Resumed home Namenda, Seroquel, Remeron. Haldol prn. 4. UTI: U/a on 07/16/17 w/ UTI, on Levaquin however cultures showing resistant strain. U/a w/ moderate LE and mild bacteriuria, treated with Macrobid. 5.questionable dysphagia; evaluated by ST. 6. DM: Sliding scale w/ Accu-Cheks. 7. DVT Prophylaxis: SCD/Teds. Pt Condition on Discharge: Fair Discharge Disposition: Discharge to SNF Discharge Time: <= 30 minutes Discharge Instructions DIET: Follow Instructions for: Pureed Diet Xavier Escamilla MD Jul 27, 2017 09:42
[2017-07-27] MEDS: MEMANTINE HCL 10 MG TAB PO SCH (09:44)
[2017-07-27] MEDS: NITROFURANTOIN MONOHYD MACROCR 100 MG CAP PO SCH (09:44)
[2017-07-27] MEDS: ACETAMINOPHEN/HYDROcodone 325 MG/5 MG TAB PO PRN ×2 (09:45→15:30)
[2017-07-27] MEDS: clonazePAM 0.5 MG TAB PO SCH (09:45)
[2017-07-27] MEDS: QUEtiapine FUMARATE 25 MG TAB PO SCH (09:45)
[2017-07-27] MEDS: RAMIPRIL 5 MG CAP PO SCH (09:45)
[2017-07-27] MEDS: TIMOLOL MALEATE 0.25% OPHT SOLN 5 ML BTL LEFT EYE SCH (09:46)
[2017-07-27 12:02] VITALS: BP 96/60; PULSE 74; RESP 19; TEMP 96.6; O2SAT 96
--- NOTE | 2017-07-27 13:00 | HHI.NSPN ---
(Ariana Pelaez) Note Status Status: Progress Note (Ariana Pelaez) Interval History Interval History This is a 76-year-old male with history of HTN, DM and Dementia who was sent to the ER from SNF secondary to witnessed fall. Pt unable to provide any history due to significant dementia. Per report, pt w/ witnessed fall from standing position, no loss of consiousness. No seizure activity. No tongue bitting. No incontinence of sotol or urine,. He was moving all 4 extremities. No focal weakness. No sensory loss. Apparently he has suffered multiple, recurrent falls. He reports neck pain. his pain is located at the cervicothoracic junction. he has a pacemaker and he is unable to undergo MRI. He is moving all upper and lower extremities well. No sensory deficit. No incontinence of stool or urine. CT Head with bilateral subdural hygromas with mild underlying mass effect CT T-spine with T1 superior endplate fracture identified, acute. Neurosurgery consultation was requested 07/27: no acute events overnight, cervical collar in place (Ariana Pelaez) Labs, Micro, & Vital Signs Results Date Time Temp Pulse Resp B/P (MAP) Pulse Ox O2 Delivery O2 Flow Rate FiO2 07/27/17 12:02 96.6 74 19 96/60 (72) 96 07/27/17 08:12 96.2 85 18 111/66 (81) 95 07/27/17 00:00 98.0 87 15 100/68 (79) 96 07/26/17 20:00 97.5 100 16 112/75 (87) 97 07/26/17 16:00 97.8 96 18 140/75 (96) 96 Constitutional Vital Signs Date Time Temp Pulse Resp B/P (MAP) Pulse Ox O2 Delivery O2 Flow Rate FiO2 07/27/17 12:02 96.6 74 19 96/60 (72) 96 07/27/17 08:12 96.2 85 18 111/66 (81) 95 07/27/17 00:00 98.0 87 15 100/68 (79) 96 07/26/17 20:00 97.5 100 16 112/75 (87) 97 07/26/17 16:00 97.8 96 18 140/75 (96) 96 (Ariana Pelaez) Review of Systems Constitutional: DENIES: Fever Cardiovascular: DENIES: Chest pain Musculoskeletal: COMPLAINS OF: Muscle aches, Stiffness, Neck pain (Ariana Pelaez) Physical Exam Mr. Abebe is alert, confused, oriented to self. followed few simple commands. Cranial nerve: pupils equal, round, and reactive to light. Facial motor function appears normal and symmetrical at rest. HEENT: normocephalic, nonicteric sclera Neck is immobilized by [place] collar, which appears slightly too large for him. Motor: Moving all four extremities Deep tendon reflexes are 1+. There is a bilateral plantar flexion response. Neena sign is negative. There is no clonus Cerebellar examination is limited due to the patient condition Heart: Regular rate and rhythm. Pacemaker Respiratory: Clear to auscultation. Breath sounds equal bilaterally. Abdomen: soft, non-tender, nondistended. +BS (Ariana Pelaez) Mr. Abebe is alert, confused, oriented to self. followed few simple commands. Cranial nerve: pupils equal, round, and reactive to light. Facial motor function appears normal and symmetrical at rest. HEENT: normocephalic, nonicteric sclera Neck is immobilized by [place] collar, which appears slightly too large for him. Motor: Moving all four extremities Deep tendon reflexes are 1+. There is a bilateral plantar flexion response. Neena sign is negative. There is no clonus Cerebellar examination is limited due to the patient condition Heart: Regular rate and rhythm. Pacemaker Respiratory: Clear to auscultation. Breath sounds equal bilaterally. Abdomen: soft, non-tender, nondistended. (Bhavin Carter MD) Medications Current Medications Current Medications Medications (Trade) Dose Ordered Sig/Raymond Route PRN Reason Start Time Stop Time Status Last Admin Dose Admin Dextrose (D50w (Vial) Inj) 50 ml UNSCH PRN IV PUSH HYPOGLYCEMIA-SEE COMMENTS 07/25/17 23:30 Glucagon (Glucagon Inj) 1 mg UNSCH PRN OTHER HYPOGLYCEMIA-SEE COMMENTS 07/25/17 23:30 Insulin Aspart (NovoLOG SUPPLEMENTAL SCALE) 1 ACHS SLIDING SCALE SQ 07/26/17 08:00 07/26/17 17:32 Haloperidol Lactate (Haldol Inj) 5 mg Q4H PRN IM AGITATION 07/25/17 23:30 07/26/17 17:31 Sodium Chloride (NS Flush) 2 ml UNSCH PRN IV FLUSH FLUSH AFTER USING IV ACCESS 07/25/17 23:30 Sodium Chloride (NS Flush) 2 ml BID IV FLUSH 07/26/17 09:00 07/27/17 09:00 Ondansetron HCl (Zofran Inj) 4 mg Q6H PRN IVP NAUSEA OR VOMITING 07/25/17 23:30 Acetaminophen (Tylenol) 650 mg Q6H PRN PO FEVER/PAIN SCALE 1 TO 2 07/25/17 23:30 Acetaminophen/ Hydrocodone Bitart (Louin 5-325 Mg) 1 tab Q4H PRN PO PAIN SCALE 3 TO 5 07/25/17 23:30 07/27/17 09:45 Morphine Sulfate (Morphine Inj) 2 mg Q3H PRN IV PUSH Pain 6-10 07/25/17 23:30 07/25/17 23:49 Senna/Docusate Sodium (Vivian-Colace) 1 tab BID PO 07/26/17 09:00 07/26/17 20:47 Magnesium Hydroxide (Milk Of Magnesia Liq) 30 ml Q12H PRN PO Mild constipation 07/25/17 23:30 Sennosides (Senokot) 17.2 mg Q12H PRN PO Moderate constipation 07/25/17 23:30 Bisacodyl (Dulcolax Supp) 10 mg DAILY PRN RECTAL SEVERE CONSITIPATION / IF NPO 07/25/17 23:30 Lactulose (Lactulose Liq) 30 ml DAILY PRN PO SEVERE CONSITIPATION / IF PO 07/25/17 23:30 Clonazepam (KlonoPIN) 0.5 mg BID PO 07/26/17 09:00 07/27/17 09:45 Famotidine (Pepcid) 20 mg DAILY PRN PO INDIGESTION 07/25/17 23:30 Memantine (Namenda) 10 mg BID PO 07/26/17 09:00 07/27/17 09:44 Metoprolol Tartrate (Lopressor) 25 mg DAILY PO 07/26/17 09:00 07/27/17 09:00 Mirtazapine (Remeron) 15 mg HS PO 07/25/17 23:30 07/26/17 21:00 Ramipril (Altace) 5 mg DAILY PO 07/26/17 09:00 07/27/17 09:45 Timolol Maleate (Timoptic 0.25% Opth Soln) 1 drop BID LEFT EYE 07/26/17 09:00 07/27/17 09:46 Quetiapine Fumarate (SEROquel) 50 mg BID PO 07/26/17 09:00 07/27/17 09:45 Pravastatin Sodium (Pravachol) 80 mg HS PO 07/26/17 21:00 07/26/17 20:47 Nitrofurantoin Macrocrystals (Macrobid) 100 mg BIDPC PO 07/26/17 09:00 07/27/17 09:44 (Ariana Pelaez) Current Medications Current Medications Nitrofurantoin Macrocrystals (Macrobid) 100 mg ONCE ONCE PO Last administered on 07/25/17at 21:25; Start 07/25/17 at 21:00; Stop 07/25/17 at 21:01; Status DC Tetanus/ Diphtheria Toxoids (Tetanus/ Diphtheria Tox Adult) 0.5 ml ONCE ONCE IM Last administered on 07/25/17at 21:27; Start 07/25/17 at 21:15; Stop 07/25/17 at 21:16; Status DC Sodium Chloride (NS Flush) 2 ml UNSCH PRN IV FLUSH FLUSH AFTER USING IV ACCESS ; Start 07/25/17 at 22:00; Stop 07/25/17 at 23:29; Status DC Dextrose (D50w (Vial) Inj) 50 ml UNSCH PRN IV PUSH HYPOGLYCEMIA-SEE COMMENTS; Start 07/25/17 at 23:30 Glucagon (Glucagon Inj) 1 mg UNSCH PRN OTHER HYPOGLYCEMIA-SEE COMMENTS; Start 07/25/17 at 23:30 Insulin Aspart (NovoLOG SUPPLEMENTAL SCALE) 1 ACHS SLIDING SCALE SQ Last administered on 07/26/17at 17:32; Start 07/26/17 at 08:00 Haloperidol Lactate (Haldol Inj) 5 mg Q4H PRN IM AGITATION Last administered on 07/26/17at 17:31; Start 07/25/17 at 23:30 Sodium Chloride (NS Flush) 2 ml UNSCH PRN IV FLUSH FLUSH AFTER USING IV ACCESS ; Start 07/25/17 at 23:30 Sodium Chloride (NS Flush) 2 ml BID IV FLUSH Last administered on 07/27/17at 09: 00; Start 07/26/17 at 09:00 Ondansetron HCl (Zofran Inj) 4 mg Q6H PRN IVP NAUSEA OR VOMITING; Start at 23:30 Acetaminophen (Tylenol) 650 mg Q6H PRN PO FEVER/PAIN SCALE 1 TO 2; Start at 23:30 Acetaminophen/ Hydrocodone Bitart (Louin 5-325 Mg) 1 tab Q4H PRN PO PAIN SCALE 3 TO 5 Last administered on 07/27/17at 09:45; Start 07/25/17 at 23:30 Morphine Sulfate (Morphine Inj) 2 mg Q3H PRN IV PUSH Pain 6-10 Last administered on 07/25/17at 23:49; Start 07/25/17 at 23:30 Senna/Docusate Sodium (Vivian-Colace) 1 tab BID PO Last administered on 07/26/17at 20:47; Start 07/26/17 at 09:00 Magnesium Hydroxide (Milk Of Magnesia Liq) 30 ml Q12H PRN PO Mild constipation ; Start 07/25/17 at 23:30 Sennosides (Senokot) 17.2 mg Q12H PRN PO Moderate constipation; Start 07/25/17 at 23:30 Bisacodyl (Dulcolax Supp) 10 mg DAILY PRN RECTAL SEVERE CONSITIPATION / IF NPO ; Start 07/25/17 at 23:30 Lactulose (Lactulose Liq) 30 ml DAILY PRN PO SEVERE CONSITIPATION / IF PO; Start 07/25/17 at 23:30 Clonazepam (KlonoPIN) 0.5 mg BID PO Last administered on 07/27/17at 09:45; Start 07/26/17 at 09:00 Famotidine (Pepcid) 20 mg DAILY PRN PO INDIGESTION; Start 07/25/17 at 23:30 Memantine (Namenda) 10 mg BID PO Last administered on 07/27/17at 09:44; Start 07/26/17 at 09:00 Metoprolol Tartrate (Lopressor) 25 mg DAILY PO Last administered on 07/27/17 09 :00; Start 07/26/17 at 09:00 Mirtazapine (Remeron) 15 mg HS PO Last administered on 07/26/17 21:00; Start at 23:30 Ramipril (Altace) 5 mg DAILY PO Last administered on 07/27/17 09:45; Start 07/26 at 09:00 Timolol Maleate (Timoptic 0.25% Opth Soln) 1 drop BID LEFT EYE Last administered on 07/27/17 09:46; Start 07/26/17 at 09:00 Quetiapine Fumarate (SEROquel) 50 mg BID PO Last administered on 07/27/17 09:45 ; Start 07/26/17 at 09:00 Pravastatin Sodium (Pravachol) 80 mg HS PO Last administered on 07/26/17 20:47 ; Start 07/26/17 at 21:00 Nitrofurantoin Macrocrystals (Macrobid) 100 mg BIDPC PO Last administered on 09:44; Start 07/26/17 at 09:00 Sodium Chloride 500 ml @ 75 mls/hr Q6H40M ONCE IV Last administered on 10:00; Start 07/26/17 at 10:00; Stop 07/26/17 at 16:39; Status DC (Bhavin Carter MD) Medical Decision Making MDM Remarks 76 y/o male with anterior superior endplate T1 fracture unable to undergo MRI due to pacemaker (Ariana Pelaez) Plan Plan Remarks cont nonsurgical management with [place] J collar dw nursing of improper fitting - orthotech for reevaluation supportive care he may remove his collar with meals clear to dc from NRS standpoint f/u in office in 4-6 weeks with f/u C-spine xray (Ariana Pelaez) Attending Statement As above I again reviewed his clinical and radiological studies Head CT 07/25/17 0000 Signed Impressions: Service Date/Time: Tuesday, July 25, 2017 21:23 - CONCLUSION: 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 Agustin Ennis MD Cervical Spine CT 07/25/17 0000 Signed Impressions: Service Date/Time: Tuesday, July 25, 2017 21:23 - CONCLUSION: T1 superior endplate fracture identified, acute. Mild loss of vertebral body height. Agustin Ennis MD neuro checks in a serial fashion. Non surgical treatment for hygromas. Avoid further falls T1 vertebral fracture. Non surgical treatment. recommend Bracing spine with [place] J collar Dementia. . Resume home Namenda, Seroquel, Remeron. Haldol prn. . Consult neurology UTI (urinary tract infection). UA and cultures. on Levaquin however cultures showing resistant strain. U/a w/ moderate LE and mild bacteriuria, s/p Macrobid given in ER, . Pulmonary.. Continue aggressive pulmonary toilette, nasotracheal suction, and breathing treatments with nebulizers. Renal. monitor closely urine output, BUN and creatinine Diabetes mellitus Monitor serial Acu checks and SSI as needed in detail Protonix for stress ulcer prophylaxis Alfredito hose and SCD's for DVT prophylaxis The exam, history, and the medical decision-making described in the above note were completed with the assistance of the mid-level provider. I reviewed and agree with the findings presented. I attest that I had a [id number] encounter with the patient on the same day, and personally performed and documented my assessment and findings in the medical record. (Bhavin Carter MD) Ariana Pelaez Jul 27, 2017 13:00 Bhavin Carter MD Jul 27, 2017 14:28
[2017-07-27] MEDS: HALOPERIDOL LACTATE 5 MG/ML AMP IM PRN (15:30)
[2017-07-27 16:03] VITALS: BP 93/60; PULSE 65; RESP 18; TEMP 96.7; O2SAT 98
[2017-07-27 16:30] VITALS: RESP 18
== END 2017-07-27 17:26 | DRG 552 ==
LOC: NEPC 18:55 → NEDA 23:26 → N06B 07-26 00:20 → N06A 07-26 12:02
PROVIDERS: ADMIT Internal Medicine; ATTEND Internal Medicine
DX: S22.019A Unspecified fracture of first thoracic vertebra, initial encounter for closed fracture (principal); W18.30XA Fall on same level, unspecified, initial encounter; Y92.129 Unspecified place in nursing home as the place of occurrence of the external cause; F03.90 Unspecified dementia, unspecified severity, without behavioral disturbance, psychotic disturbance, mood disturbance, and anxiety; N39.0 Urinary tract infection, site not specified; E11.9 Type 2 diabetes mellitus without complications; I10 Essential (primary) hypertension; Z95.0 Presence of cardiac pacemaker
CPT/HCPCS: 70450; 72125; 80053; 81001; 82948; 85025; 85610; 85730; 90471; 90714; 93005; J1630; J1815; J2270; J7040; L0150; L0172

== ENCOUNTER 2017-08-01 09:35 | Emergency (ER) | payer MEDICARE, MEDICAID ==
[~2017-08-01] VITALS: Ht 175.3 cm; Wt 80.0 kg
[~2017-08-01 09:35] MED LIST changes: +HYDR-3516 PO; -LEVA500T33 PO; +NITR100C4 PO; -TYLE325T PO; -ZOFR4TAB PO
--- NOTE | 2017-08-01 09:51 | PD ---
HPI Chief Complaint: Fall Time Seen by Provider: 09:48 Travel History International Travel<30 days: No Contact w/Intl Traveler<30days: No Traveled to known affect area: No History of Present Illness HPI Patient was brought in from [facility], per history he had a mechanical fall off his bed. EMS brought him in c-collar but not sheddpacked...PATIENT IS DEMENTIA PATIENT AND IS NOT A/O AT BASELINE. PFSH Past Medical History Heart Rhythm Problems: Yes (has a pacer) Dementia: Yes Diabetes: Yes Patient Takes Glucophage: Yes Diminished Hearing: Yes Glaucoma: Yes Hypertension: Yes Musculoskeletal: Yes (this admit t1 fracture) Neurologic: Yes (dementia) Psychiatric: Yes Renal Failure: Yes ?: Unknown Past Surgical History Cardiac Surgery: Yes (has pacemanker implated to left chest) Oral Surgery: Yes (no teeth) Other Surgery: Yes Social History Alcohol Use: No Tobacco Use: No (the patient's social history is unable to be obtained.) Substance Use: No Allergies-Medications (Allergen,Severity, Reaction): Coded Allergies: No Known Allergies (Unverified , 07/25/17) Reported Meds & Prescriptions Reported Meds & Active Scripts Active Hydrocodone-Acetamin 5-325 mg (Hydrocodone/Acetaminophen) 5 Mg-325 Mg Tablet 1 Tab PO Q6HR PRN Nitrofurantoin Monohydrate Macrocrystals (Nitrofurantoin Monoh/Nitrofur Macro) 100 Mg Cap 100 Mg PO BIDPC 3 Days Clonazepam 0.5 Mg Tab 0.5 Mg PO BID Reported Zofran (Ondansetron HCl) 4 Mg Tab 4 Mg PO Q8HR PRN D-2000 Maximum Strength (Cholecalciferol) 2,000 Unit Tab 1,000 Units PO DAILY Famotidine 20 Mg Tab 20 Mg PO DAILY PRN Timoptic Opth Drops (Timolol Opth Drops) 0.25 % Soln 1 Drop LEFT EYE BID On hold from 06/25/2017-07/23/2017 Seroquel (Quetiapine Fumarate) 50 Mg Tab 50 Mg PO BID Namenda (Memantine) 10 Mg Tab 10 Mg PO BID Simvastatin 40 Mg Tab 40 Mg PO HS Remeron (Mirtazapine) 15 Mg Tab 15 Mg PO HS Ramipril 5 Mg Cap 5 Mg PO DAILY Metformin ER (Metformin HCl) 500 Mg Sukh 500 Mg PO DAILY With evening meal Review of Systems Except as stated in HPI: all other systems reviewed are Neg General / Constitutional: No: Fever Eyes: No: Visual changes HENT: Positive: Other (head abrasion from fall) Cardiovascular: No: Chest Pain or Discomfort Respiratory: No: Shortness of Breath Gastrointestinal: No: Abdominal Pain Genitourinary: No: Dysuria Musculoskeletal: No: Pain Skin: No Rash Neurologic: No: Weakness Psychiatric: No: Depression Endocrine: No: Polydipsia Hematologic/Lymphatic: No: Easy Bruising Physical Exam Narrative GENERAL: SKIN: Warm and dry. HEAD: abrasion to posterior scalp. Normocephalic. EYES: Pupils equal and round. No scleral icterus. No injection or drainage. ENT: No nasal bleeding or discharge. Mucous membranes pink and moist. No hemotympanum NECK: Trachea midline. No JVD. c collar in place CARDIOVASCULAR: Regular rate and rhythm. RESPIRATORY: No accessory muscle use. Clear to auscultation. Breath sounds equal bilaterally. GASTROINTESTINAL: Abdomen soft, non-tender, nondistended. Hepatic and splenic margins not palpable. MUSCULOSKELETAL: Extremities without clubbing, cyanosis, or edema. No obvious deformities. NEUROLOGICAL: Awake and alert. No obvious cranial nerve deficits. Motor grossly within normal limits. Five out of 5 muscle strength in the arms and legs. Normal speech. PSYCHIATRIC: Appropriate mood and affect; insight and judgment normal. Data Data Orders Orders Ct Brain W/O Iv Contrast(Rout) (08/01/17 09:48) Blood Glucose (08/01/17 09:48) Ct Cerv Spine W/O Contrast (08/01/17 09:49) [facility] Medical Decision Making Medical Screen Exam Complete: Yes Emergency Medical Condition: Yes Medical Record Reviewed: Yes Differential Diagnosis Intracranial hemorrhage versus skull fracture versus neck fracture versus neck this patient versus hypoglycemia Narrative Course CT HEAD SHOWS BILATERAL HYGROMAS BUT NO NEW SDH, ICH. CT SPINE: STABLE T1 COMPRESSION FRACTURE, NO NEW COMPRESSION FRACTURES, NO TRAUMATIC LISSTHESIS, STABLE DEGEN DISC DISEASE AND FACET ARTHROPATHY PER RADIOLOGIST Diagnosis Primary Impression: status post Mechanical fall with scalp contusion Patient Instructions: General Instructions, Scalp Contusion in Adults (ED) Disposition: 01 DISCHARGE HOME Condition: Stable Khanh Zarco MD Aug 01, 2017 09:51
[2017-08-01] MEDS ORDERED: D-20TAB3 PO (09:58)
[2017-08-01] MEDS ORDERED: ZOFR4TAB PO (09:58)
--- NOTE | 2017-08-01 10:37 | RADRPT ---
EXAM DATE/TIME: 08/01/2017 10:04 [facility] COMPARISON: CT BRAIN W/O CONTRAST, July 25, 2017, 21:23. INDICATIONS : Fall, laceration to back of head. RADIATION DOSE: 32.38 CTDIvol (mGy) MEDICAL HISTORY : Dementia. Hypertension. Renal failure, chronic. SURGICAL HISTORY : Pacemaker. ENCOUNTER: Initial ACUITY: 1 day PAIN SCALE: Non-responsive LOCATION: occipital TECHNIQUE: Multiple contiguous axial images were obtained of the head. Using automated exposure control and adj ustment of the mA and/or kV according to patient size, radiation dose was kept as low as reasonably a chievable to obtain optimal diagnostic quality images. DICOM format image data is available electro nically for review and comparison. FINDINGS: Large bilateral subdural hygromas with sulcal effacement of both cerebral hemispheres are again noted and have remained stable. The right-sided hygroma measures 1.3 cm in width and the left 1.5 cm. Ther e is no evidence of acute hemorrhage. There are no findings characteristic of acute stroke or intra-axial hemorrhage. There is no shift of midline structures there CONCLUSION: 1. Persistent large bilateral subdural hygromas with sulcal effacement but no evidence of acute hemor rhage. 2. No evidence of acute infarct, intra-axial hemorrhage or edema. Louie Dumas MD on August 01, 2017 at 10:31 Board Certified Radiologist. This report was verified electronically.
--- NOTE | 2017-08-01 10:54 | RADRPT ---
EXAM DATE/TIME: 08/01/2017 10:04 [facility] COMPARISON: CT CERVICAL SPINE W/O CONTRAST, July 25, 2017, 21:23. INDICATIONS : Fall, neck pain. RADIATION DOSE: 16.45 CTDIvol (mGy) MEDICAL HISTORY : Dementia. Hypertension. Renal failure, chronic. SURGICAL HISTORY : Pacemaker. ENCOUNTER: Initial ACUITY: 1 day PAIN SCALE: Non-responsive LOCATION: neck TECHNIQUE: Volumetric scanning of the cervical spine was performed. Multiplanar reconstructions in the sagittal, coronal and oblique axial planes were performed. Using automated exposure control and adjustment o f the mA and/or kV according to patient size, radiation dose was kept as low as reasonably achievable to obtain optimal diagnostic quality images. DICOM format image data is available electronically f or review and comparison. FINDINGS: Comparison is made to recent exam on 07/25/2017 Craniocervical and cervical vertebral body alignment are well-maintained without evidence of traumati c listhesis. Mild a superimposed fracture of the T1 vertebral body is again noted. Vertebral body height is a loss stable without additional compression fractures. Facet joints are satisfactory aligned. There is moderate bilateral facet arthropathy. Degenerative changes of the intervertebral disc spaces are stable. CONCLUSION: 1. Stable mild compression fracture of T1. 2. No new or additional compression fractures. 3. No evidence of traumatic listhesis. 4. Stable degenerative disc disease and facet arthropathy. Louie Dumas MD on August 01, 2017 at 10:48 Board Certified Radiologist. This report was verified electronically.
== END 2017-08-01 13:17 | disposition home or self-care (01) ==
LOC: NEPC 09:35
DX: S00.03XA Contusion of scalp, initial encounter (principal); W06.XXXA Fall from bed, initial encounter; Y92.129 Unspecified place in nursing home as the place of occurrence of the external cause; F03.90 Unspecified dementia, unspecified severity, without behavioral disturbance, psychotic disturbance, mood disturbance, and anxiety; I12.9 Hypertensive chronic kidney disease with stage 1 through stage 4 chronic kidney disease, or unspecified chronic kidney disease; E11.22 Type 2 diabetes mellitus with diabetic chronic kidney disease; N18.9 Chronic kidney disease, unspecified
CPT/HCPCS: 70450; 72125; 99283